=== PATIENT | female | born 1935 | race Two or more races ===

== ENCOUNTER 2022-08-05 19:29 | Inpatient (IN) | payer MEDICARE, OTHER ==
[~2022-08-05] VITALS: Ht 152.4 cm; Wt 56.7 kg
--- NOTE | 2022-08-05 20:30 | NUR ---
NIHSS STROKE ASSESSMENT DONE. PATIENT IS AAOX0. NOT FOLLOWING COMMAND, NON RESPONSIVE TO VERBAL STIMULI BUT WITHDRAWS TO PAINFUL STIMULI. PATIENT HAS HX OF CVA PRIOR. NIHSS SCORE OF 7. DR ELIZONDO MADE AWARE.
--- NOTE | 2022-08-05 21:23 | NUR ---
GRIDDLE COOK ON BEDSIDE.
[2022-08-05] MEDS ORDERED: IV NS 0.9% 500 ML BAG IV ONE (21:30)
[2022-08-05] MEDS ORDERED: DILTIAZEM HCL 50 MG IV IV ONE (21:30)
--- NOTE | 2022-08-05 21:30 | NUR ---
BROUGHT TO CT DEPT
--- NOTE | 2022-08-05 21:45 | NUR ---
IV DAVID G 20 L HAND, INSERTED.
[2022-08-05 21:46] LABS: BASOPHILS % (AUTO) 0.2 % (0.0-2.0); EOSINOPHILS % (AUTO) 0.2 % (0.0-6.0); HEMATOCRIT 31 % (33-45); HEMOGLOBIN 9.4 g/dL (11.5-14.8); LYMPHOCYTES % (AUTO) 5.3 % (20.0-44.0); MEAN CORPUSCULAR HGB CONC 31 g/dl (31.0-36.0); MEAN CORPUSCULAR VOLUME 75 fL (82-100); MONOCYTES # (AUTO) 0.6 K/uL (0.1-1.30); MONOCYTES % (AUTO) 3.4 % (2.0-12.0); NEUTROPHILS # (AUTO) 16.4 K/uL (1.8-8.9); NEUTROPHILS % (AUTO) 90.9 % (43.0-81.0); PLATELET COUNT (AUTO) 387 K/uL (150-450); RED BLOOD CELL COUNT(AUTO) 4.09 MIL/uL (4.0-5.2); WHITE BLOOD COUNT (AUTO) 18.1 K/uL (4.3-11.0)
[2022-08-05 22:04] LABS: ALANINE AMINOTRANSFERASE 46 U/L (12-78); ALBUMIN 1.7 g/dL (3.4-5.0); ALKALINE PHOSPHATASE 172 U/L (46-116); ASPARTATE AMINOTRANSFERASE 51 U/L (15-37); BILIRUBIN,DIRECT 0.2 mg/dL (0.0-0.2); BILIRUBIN,TOTAL 0.3 mg/dL (0.2-1.0); CALCIUM, SERUM 7.9 mg/dL (8.5-10.1); CARBON DIOXIDE 27 mmol/L (21-32); CHLORIDE 92 mmol/L (98-107); CREATININE 1.2 mg/dL (0.6-1.3); GLUCOSE 271 mg/dL (74-106); POTASSIUM 4.4 mmol/L (3.5-5.1); SODIUM SERUM 125 mmol/L (136-145); TOTAL PROTEIN, SERUM 6.7 g/dL (6.4-8.2)
[2022-08-05 22:18] LABS: UREA NITROGEN, BLOOD 87 mg/dL (7-18)
--- NOTE | 2022-08-05 22:18 | NUR ---
RECEIVED REPORT FROM LAB [facility]. PATIENT BUN [id number]. DR CARTAGENA MADE AWARE
--- NOTE | 2022-08-05 22:21 | NUR ---
URINE SPECIMEN SENT TO LAB
--- NOTE | 2022-08-05 22:25 | NUR ---
URINE SAMPLE TAKEN AND SENT TO LAB.
[2022-08-05 22:38] LABS: BILIRUBIN,URINE 1+ (NEGATIVE); COLOR,URINE DARK YELLOW (YELLOW); LEUKOCYTE ESTERASE ,URINE 1+ (NEGATIVE); NITRITE, URINE NEGATIVE (NEGATIVE); PROTEIN,URINE 3+ mg/dl (NEGATIVE); UGLUCOSE NEGATIVE (NEGATIVE)
[2022-08-05 22:42] LABS: PH,URINE >8.5 (5.0-8.0)
[2022-08-05 22:45] LABS: WBC,URINE 21-50 /HPF (0-3)
[2022-08-05 22:46] LABS: BACTERIA,URINE Moderate /HPF (None Seen); SQUAMOUS EPITHELIAL CELL,UR Many /HPF (None Seen); URIC ACID CRYSTALS,URINE Moderate /HPF (None Seen)
[2022-08-05] MEDS ORDERED: CEFTRIAXONE 1GM BAG (ER ONLY) 1 GM/50 ML PIGGYBACK IV ONE (23:00)
[2022-08-05] MEDS ORDERED: CEFTRIAXONE 1GM BAG (ER ONLY) 50 ML IV ONE (23:16)
[2022-08-05] MEDS ORDERED: ONDANSETRON HCL/PF 4 MG/2 ML VIAL IVP PRN (23:30)
[2022-08-05] MEDS ORDERED: hydrALAZINE HCL IV 20 MG VIAL IV PRN (23:30)
[2022-08-05] MEDS ORDERED: MORPHINE SULFATE INJ 2 MG/ML DISP.SYRIN IV PRN (23:30)
[2022-08-05] MEDS ORDERED: LABETALOL 20 MG/4 ML VIAL IV PRN (23:30)
[2022-08-06 00:10] LABS: BAND % (MANUAL) 2 % (0.0-5.0); BASOPHILS % (MANUAL) 0 % (0.0-2.0); EOSINOPHILS % (MANUAL) 0 % (0-4); LYMPHOCYTES % (MANUAL) 6 % (16-48); MONOCYTES % (MANUAL) 5 % (0-11.0); NEUTROPHILS % (MANUAL) 87 (42-76)
[2022-08-06] MEDS ORDERED: DEXTROSE 50%-WATER 50 ML DISP.SYRIN IV PRN (00:30)
[2022-08-06] MEDS ORDERED: CEFEPIME 1 GM in IV D5W 50 ML IV ONE (01:30)
[2022-08-06] MEDS ORDERED: ENOXAPARIN SODIUM 60 MG/0.6 ML DISP.SYRIN SQ ONE (01:30)
[2022-08-06 01:40] VITALS: BP 108/68
--- NOTE | 2022-08-06 01:40 | NUR ---
AREA MECHANIC ADMITTING NOTES PT ARRIVED TO UNIT VIA GURNEY BY ER STAFF. A/O X0-1, RESPONDS TO VERBAL STIMULI BY OPENING EYES AT TIMES BUT UNABLE TO RESPOND VERBALLY. NOTED WITH FLAT AFFECT. VITAL SIGNS: 98.3 F, 108/68 BP, 103 HR, 100% O2, 16 RR. WEIGHT: 121.9 LB. BLOOD SUGAR 173. ON O2 2L VIA NC, STABLE WITH NO S/S OF SOB OR DISTRESS. PLACED ON TELE MONITORING SHOWING AFIB 110'S-140'S. NO SIGNS OF PAIN NOTED AT THIS TIME. IV ACCESS L HAND #20G, INTACT, PATENT, FLUSHING WELL. STARTED ON NS @ 75 ML/HR PER ORDERS. SKIN ASSESSMENT PERFORMED, SOME ISSUES NOTED AND DOCUMENTED IN CHART: B/L HEEL REDNESS, SACRAL REDNESS. BELONGINGS DOCUMENTED AND PLACED IN CHART. PEG TUBE INTACT, PLACEMENT CONFIRMED BY AUSCULTATION, FLUSHING WELL. PT CLEANED AND MADE COMFORTABLE. PLACED IN SEMI-FOWLERS. SAFETY PRECAUTIONS PUT IN PLACE: BED LOCKED AND IN LOWEST POSITION, SIDE RAILS UP X3, CALL LIGHT WITHIN REACH. WILL CONTINUE TO MONITOR AND ASSIST.
--- NOTE | 2022-08-06 01:40 | NUR ---
BROUGHT TO ROOM VIA ACLS PROTOCOL
[2022-08-06] MEDS: IV NS 0.9% 1,000 ML IV SCH ×2 (02:14→12:53)
--- NOTE | 2022-08-06 02:44 | NUR ---
RN NOTE NOTIFIED CHARGE NURSE TO OBTAIN PRESCRIBED CEFEPIME FOR PT. UNABLE TO OBTAIN FROM BOTH NURSING MAINTENANCE INSTRUCTOR AND ER UNIT. WILL NON-ADMIN DUE TO UNAVAILABILITY. CHARGE NURSE AWARE.
[2022-08-06] MEDS: METOPROLOL TARTRATE 25 MG TABLET PO SCH ×5 (02:58→21:03)
[2022-08-06 06:37] LABS: BASOPHILS % (AUTO) 0.2 % (0.0-2.0); EOSINOPHILS % (AUTO) 0.4 % (0.0-6.0); HEMATOCRIT 29 % (33-45); HEMOGLOBIN 8.9 g/dL (11.5-14.8); LYMPHOCYTES # (AUTO) 1.2 K/uL (0.8-4.8); LYMPHOCYTES % (AUTO) 7.3 % (20.0-44.0); MEAN CORPUSCULAR HGB CONC 31 g/dl (31.0-36.0); MEAN CORPUSCULAR VOLUME 75 fL (82-100); MONOCYTES # (AUTO) 0.7 K/uL (0.1-1.30); NEUTROPHILS # (AUTO) 14.6 K/uL (1.8-8.9); NEUTROPHILS % (AUTO) 88.1 % (43.0-81.0); PLATELET COUNT (AUTO) 415 K/uL (150-450); RED BLOOD CELL COUNT(AUTO) 3.85 MIL/uL (4.0-5.2); WHITE BLOOD COUNT (AUTO) 16.6 K/uL (4.3-11.0)
[2022-08-06 07:12] LABS: ALBUMIN 1.6 g/dL (3.4-5.0); BILIRUBIN,TOTAL 0.3 mg/dL (0.2-1.0); CALCIUM, SERUM 7.8 mg/dL (8.5-10.1); MAGNESIUM 3.1 mg/dL (1.8-2.4); PHOSPHORUS 3.9 mg/dL (2.5-4.9); POTASSIUM 3.9 mmol/L (3.5-5.1); TOTAL PROTEIN, SERUM 6.2 g/dL (6.4-8.2)
--- NOTE | 2022-08-06 07:37 | NUR ---
MILL WORKER CLOSING NOTES PT SLEEPING IN BED AT THIS TIME. A/O X0-1, RESPONDS TO VERBAL STIMULI BY OPENING EYES AT TIMES BUT UNABLE TO RESPOND VERBALLY. STABLE ON O2 2L VIA NC, STABLE WITH NO S/S OF SOB OR DISTRESS. ON TELE MONITORING SHOWING AFIB 110'S-150'S. NO SIGNS OF PAIN NOTED AT THIS TIME. IV ACCESS L HAND #20G, INTACT, PATENT, FLUSHING WELL. RUNNING NS @ 75 ML/HR. PEG TUBE INTACT, PLACEMENT CONFIRMED BY AUSCULTATION, FLUSHING WELL. ALL CARE PROVIDED AND MEDS TOLERATED. SAFETY PRECAUTIONS MAINTAINED: BED LOCKED AND IN LOWEST POSITION, SIDE RAILS UP X3, CALL LIGHT WITHIN REACH. WILL ENDORSE CALLI TO DAY SHIFT NURSE.
--- NOTE | 2022-08-06 07:50 | NUR ---
COTTON FARMER OPENING NOTE PT SLEEPING IN BED AT THIS TIME. A/O X0-1, RESPONDS TO VERBAL STIMULI BY OPENING EYES AT TIMES BUT UNABLE TO RESPOND VERBALLY. STABLE ON O2 2L VIA NC, STABLE WITH NO S/S OF SOB OR DISTRESS. ON TELE MONITORING SHOWING AFIB @125BPM. NO SIGNS OF PAIN NOTED AT THIS TIME. IV ACCESS L HAND #20G, INTACT, PATENT, FLUSHING WELL. RUNNING NS @ 75 ML/HR. PEG TUBE INTACT, PLACEMENT CONFIRMED BY AUSCULTATION, FLUSHING WELL. SAFETY PRECAUTIONS MAINTAINED: BED LOCKED AND IN LOWEST POSITION, SIDE RAILS UP X3, CALL LIGHT WITHIN REACH. WILL CONTINUE TO MONITOR AND ASSIST.
[2022-08-06] MEDS: BLOOD SUGAR DIAGNOSTIC 1 EACH STRIP IN SCH ×4 (08:19→21:07)
[2022-08-06] MEDS: INSULIN REGULAR, HUMAN 100 UNIT/ML 3 ML VIAL SQ PRN ×4 (08:21→21:17)
[2022-08-06 09:00] VITALS: BP 127/80
[2022-08-06] MEDS ORDERED: ACET-868 GT (10:10)
[2022-08-06] MEDS ORDERED: ATOR10TA GT (10:10)
[2022-08-06] MEDS ORDERED: LEVO500T90 GT (10:10)
[2022-08-06] MEDS ORDERED: ESOM40CA GT (10:10)
[2022-08-06] MEDS ORDERED: BISA10SU11 RC (10:10)
[2022-08-06] MEDS ORDERED: AMIN30LI2 GT (10:10)
[2022-08-06] MEDS ORDERED: ZINC56.713 TP (10:10)
[2022-08-06] MEDS ORDERED: LEVE500T9 GT (10:10)
[2022-08-06] MEDS ORDERED: NUT.250L18 GT (10:10)
[2022-08-06] MEDS ORDERED: FERR300L GT (10:10)
[2022-08-06] MEDS ORDERED: LATA2.5D15 EACHEYE (10:10)
[2022-08-06] MEDS ORDERED: SENN-261 GT (10:10)
[2022-08-06] MEDS ORDERED: POLY17PO4 GT (10:10)
[2022-08-06] MEDS ORDERED: INSU100V11 SQ (10:10)
[2022-08-06] MEDS ORDERED: APIX2.5T GT (10:10)
[2022-08-06] MEDS ORDERED: BRIM5DRO2 EACHEYE (10:10)
[2022-08-06] MEDS ORDERED: CHLO25TA23 GT (10:10)
[2022-08-06] MEDS ORDERED: METO25TA20 GT (10:10)
--- NOTE | 2022-08-06 11:05 | NUR ---
WOUND CARE CONSULT: PT PRESENTS WITH SACRAL INTACT DEEP TISSUE INJURY WITH SURROUNDING SCARRING, BILATERAL HEEL DEEP TISSUE INJURIES, ALL PRESENT ON ADMISSION. RT SIDED WEAKNESS NOTED. PT IS INCONTINENT. DISCUSSED SKIN PROTECTION RECOMMENDATIONS WITH NURSING STAFF. IN AGREEMENT WITH PLAN OF CARE. Addendum: 08/06/22 at 1106 by EDWARD CASTAÑEDA WNDNU Amended: Links added.
[2022-08-06] MEDS ORDERED: chlorproMAZINE HCL 25 MG TABLET GT PRN (12:00)
[2022-08-06] MEDS ORDERED: BISACODYL SUPP (10 MG) 10 MG/SUPP.RECT SUPP.RECT RC PRN (12:00)
[2022-08-06] MEDS ORDERED: SENNOSIDES 8.6 MG TABLET GT PRN (12:00)
[2022-08-06] MEDS: CEFEPIME 1 GM in IV D5W 50 ML IV SCH (12:25)
[2022-08-06] MEDS: GLUCERNA 1.2 1,000 ML BOTTLE NG PRN (12:27)
[2022-08-06 13:00] VITALS: BP 106/70
--- NOTE | 2022-08-06 16:00 | NUR ---
RN NOTE COLLECTED STOOL SAMPLE AT THIS TIME. CALLED LAB TO PARTS CHASER.
[2022-08-06 17:00] VITALS: BP 106/63
[2022-08-06 17:09] LABS: OCCULT BLOOD STOOL NEGATIVE (NEGATIVE)
--- NOTE | 2022-08-06 18:32 | NUR ---
STEREOTYPE FINISHER CLOSING NOTE PT SLEEPING IN BED AT THIS TIME, EASILY BEING AROUSED. A/O X0-1, RESPONDS TO VERBAL STIMULI BY OPENING EYES AT TIMES BUT UNABLE TO RESPOND VERBALLY. STABLE ON O2 2L VIA NC, STABLE WITH NO S/S OF SOB OR DISTRESS. ON TELE MONITORING SHOWING AFIB @ 109 BPM. NO SIGNS OF PAIN NOTED AT THIS TIME. IV ACCESS L HAND #20G, INTACT, PATENT, FLUSHING WELL. RUNNING NS @ 75 ML/HR. PEG TUBE INTACT, FLUSHING WELL, RUNNING GLUCERNA 1.2 @55ML/HR. PUREWICK IN PLACE, NOTED WITH BRIGHT RED URINE OUTPUT, 200ML URINE OUTPUT DURING THE SHIFT. DR TINOCO AWARE. KEPT PT C/D/I. ALL CARE PROVIDED AND MEDS TOLERATED. SAFETY PRECAUTIONS MAINTAINED: BED LOCKED AND IN LOWEST POSITION, SIDE RAILS UP X3, CALL LIGHT WITHIN REACH. WILL ENDORSE CALLI TO DAY SHIFT NURSE.
--- NOTE | 2022-08-06 19:15 | NUR ---
TELE1 RN NOTES RECEIVED LAYING ON BED,A/O X1,BREATHING NON LABORED,O2 2L/NC IN USED.PER REPORT,PATIENT WAS DNR/DNI WITH POLST,APPARENTLY SPOKE TO THE DAUGHTER WHO WAS AT BEDSIDE AND SHE SAID,SHE CPR FOR HER MOM IN CASE PATIENT STOP BREATHING,BUT NO INTUBATION.WILL TALK TO HER SISTER WHO'S SIGNED THE POLST.PRESENT IVF NS AT 75ML/HR RATE INFUSING WELL ON LEFT HAND SALINE LOCK VIA IV PUMP.ON PUREWICK DRAINS BLOODY URINE OUTPUT.ON GT FEEDING AT 55ML/HR RATE,TOLERATED WELL,WITH 5MG RESIDUAL VOLUME.HOB ELEVATED FOR ASPIRATION PRECAUTION.WILL CONTINUE TO MONITOR STATUS.
[2022-08-06 20:00] VITALS: BP 120/64
[2022-08-06] MEDS: APIXABAN 2.5 MG TABLET GT SCH (21:00)
[2022-08-06] MEDS ORDERED: METOPROLOL TARTRATE 25 MG TABLET GT SCH (21:00)
--- NOTE | 2022-08-06 21:00 | NUR ---
TELE1 RN NOTES ELIQUIS 2MG/GT HELD FOR HEMATURIA
[2022-08-06] MEDS: LEVETIRACETAM SOL (5 ML) 100 MG/ML UDC GT SCH (21:02)
[2022-08-06] MEDS: LATANOPROST EYE DROP 0.005% 2.5 ML BOTTLE EACHEYE SCH (21:03)
[2022-08-06] MEDS: ATORVASTATIN 10 MG TABLET GT SCH (21:07)
--- NOTE | 2022-08-06 21:30 | NUR ---
PARTY PLAN DEALER NOTES ACCU-CHECK BLOOD SUGAR CHECK 181MG/DL.COVERED WITH HUMULIN R 3 UNITS PER SLIDING SCALE.GT FEEDING IN PROGRESS,NO RESIDUAL VOLUME.
[2022-08-06] MEDS ORDERED: BIMATOPROST 2.5 ML DROPS OP SCH (22:00)
[2022-08-07] VITALS: BP 112/58
[2022-08-07] MEDS: IV NS 0.9% 1,000 ML IV SCH (02:21)
[2022-08-07] MEDS ORDERED: ENOXAPARIN SODIUM 60 MG/0.6 ML DISP.SYRIN SQ SCH (03:00)
[2022-08-07 04:00] VITALS: BP 109/69
[2022-08-07 05:50] LABS: BASOPHILS % (AUTO) 0.4 % (0.0-2.0); EOSINOPHILS % (AUTO) 1.1 % (0.0-6.0); HEMATOCRIT 30 % (33-45); HEMOGLOBIN 9.1 g/dL (11.5-14.8); LYMPHOCYTES # (AUTO) 0.9 K/uL (0.8-4.8); LYMPHOCYTES % (AUTO) 8.6 % (20.0-44.0); MEAN CORPUSCULAR HGB CONC 31 g/dl (31.0-36.0); MEAN CORPUSCULAR VOLUME 76 fL (82-100); MONOCYTES # (AUTO) 0.6 K/uL (0.1-1.30); MONOCYTES % (AUTO) 6.1 % (2.0-12.0); NEUTROPHILS # (AUTO) 8.8 K/uL (1.8-8.9); NEUTROPHILS % (AUTO) 83.8 % (43.0-81.0); PLATELET COUNT (AUTO) 410 K/uL (150-450); RED BLOOD CELL COUNT(AUTO) 3.92 MIL/uL (4.0-5.2); WHITE BLOOD COUNT (AUTO) 10.5 K/uL (4.3-11.0)
[2022-08-07 06:04] LABS: CALCIUM, SERUM 8.1 mg/dL (8.5-10.1); CREATININE 0.9 mg/dL (0.6-1.3); MAGNESIUM 3.2 mg/dL (1.8-2.4); POTASSIUM 4.3 mmol/L (3.5-5.1)
--- NOTE | 2022-08-07 06:11 | NUR ---
SHEET METAL WORKER NOTES NO SIGNIFICANT CHANGE IN STATUS.GT FEEDING TOLERATED WELL,NO RESIDUAL VOLUME NOTED. HAD x1 BOWEL MOVEMENT MIXED WITH URINE.PUREWICK OUTPUT 300MLREDDISH TO BROWNSH COLOR.WILL FOLLOW WITH FELICITY, DAUGHTER TODAY ABOUT CODE STATUS.IN NO ACUTE DISTRESS.MORNING CARE RENDERED TOLERATED WELL.REPOSITION,HOB ELEVATED.
--- NOTE | 2022-08-07 07:33 | NUR ---
METAL PATTERNMAKER NOTES PATIENT IN BED ASLEEP. ON NC 2L WITH NO SOB OR S/S OF RESPIRATORY DISTRESS. BREATHING EVEN AND UNLABORED. GT IN PLACE WITH GLUCERNA 1.2 RUNNING @ 55ML/HR. IV ACCESS ON L HAND 20G INFUSING NS @ 75 ML/HR WITH NO SIGNS OF INFILTRATION. WILL CONTINUE TO MONITOR.
[2022-08-07 08:00] VITALS: BP 125/56
[2022-08-07] MEDS: APIXABAN 2.5 MG TABLET GT SCH ×2 (09:00→21:00)
[2022-08-07] MEDS: ZINC OXIDE 56.7 GM TUBE TP SCH (09:00)
[2022-08-07] MEDS: BLOOD SUGAR DIAGNOSTIC 1 EACH STRIP IN SCH ×4 (09:40→22:30)
[2022-08-07] MEDS: PANTOPRAZOLE 40 MG/PACK PACK GT SCH (09:40)
[2022-08-07] MEDS: POLYETHYLENE GLYCOL 3350 17 GM POWD.PACK GT SCH (09:41)
[2022-08-07] MEDS: FERROUS SULFATE UDC 300 MG/5 ML UDC GT SCH ×2 (09:41→09:44)
[2022-08-07] MEDS: LEVETIRACETAM SOL (5 ML) 100 MG/ML UDC GT SCH ×2 (09:41→22:09)
[2022-08-07] MEDS: METOPROLOL TARTRATE 25 MG TABLET PO SCH ×4 (09:43→21:00)
[2022-08-07] MEDS: PROSOURCE / PROSTAT (PYXIS) 30 ML UDC GT SCH (09:44)
--- NOTE | 2022-08-07 10:04 | NUR ---
RACHANA WEBB DUE TO HEMATURIA. Addendum: 08/07/22 at 1005 by JUANITA PATTERSON RN MD CHANCE
[2022-08-07 12:00] VITALS: BP 127/52
--- NOTE | 2022-08-07 12:35 | NUR ---
RN NOTES PATIENTS FAMILY REQUESTED THAT PATIENT BE DISCHARGED HOME INSTEAD OF SNF.
[2022-08-07] MEDS: CEFEPIME 1 GM in IV D5W 50 ML IV SCH (13:17)
[2022-08-07] MEDS: INSULIN REGULAR, HUMAN 100 UNIT/ML 3 ML VIAL SQ PRN ×3 (13:17→22:32)
[2022-08-07 16:00] VITALS: BP 125/56
[2022-08-07] MEDS: IV NS 0.9% 1,000 ML IV PRN (18:06)
--- NOTE | 2022-08-07 19:40 | NUR ---
ROBOTICS TECHNOLOGIST OPENING NOTE PATIENT SLEEPING IN BED WITH FAMILY AT BEDSIDE, PATIENT NON-VERBAL, OPENS EYES. PATIENT STABLE ON 2 LPM OF O2 VIA NASAL CANNULA, NO S/S OF DISTRESS OR SOB NOTED, BREATHING EVEN AND UNLABORED. PATIENT ON TELE MONITOR READING CONTROLLED A. FIB, HR: 80. IV ACCESS ON LEFT HAND #20G INTACT AND INFUSING NS @ 75 ML/HR. PATIENT ON GTF GLUCERNA 1.2 @ 55 ML/HR X 20 HRS. SAFETY MEASURES IN PLACE: CALL LIGHT WITHIN REACH, SIDE RAILS UP X 3, BED LOCKED IN LOWEST POSITION, HOB ELEVATED, BED ALARM ON. WILL CONTINUE TO MONITOR PATIENT
[2022-08-07 20:00] VITALS: BP 132/59
--- NOTE | 2022-08-07 20:05 | NUR ---
MICROBIOLOGICAL LAB TECHNICIAN NOTES PATIENT IN BED ASLEEP WITH FAMILY AT BEDSIDE. ON NC 2L WITH NO SOB OR S/S OF RESPIRATORY DISTRESS. BREATHING EVEN AND UNLABORED. GT IN PLACE WITH GLUCERNA 1.2 RUNNING @ 55ML/HR SINCE 1430. IV ACCESS ON L HAND 20G INFUSING NS @ 75 ML/HR WITH NO SIGNS OF INFILTRATION. FAMILY WILL NOTIFY FELICITY TO SIGN NEW POLST. ALL SAFETY PRECAUTIONS IN PLACE WITH BED IN LOWEST LOCKED POSITION, SIDE RAILS UP X 3, AND CALL LIGHT WITHIN REACH. WILL ENDORSE TO ONCOMING SHIFT FOR CALLI.
--- NOTE | 2022-08-07 20:15 | NUR ---
HEATER FURNACE NOTE PATIENT'S FAMILY STATES THEY WANT TO CHANGE PATIENT'S CODE STATUS, CURRENTLY DNR/DNI HOWEVER FAMILY WANTS CPR BUT NO INTUBATION, TUBE FEEDING OKAY PATIENT IS CURRENTLY ON TUBE FEEDING. PER FAMILY NORA OLSON IS THE DECISION MAKER FOR FAMILY. NEW POLST SIGNED BY NORA OLSON, AWAITING MD SIGNATURE TO CHANGE CODE STATUS
--- NOTE | 2022-08-07 21:00 | NUR ---
CLOCK AND WATCH HANDS PAINTER NOTE CONTACTED DICTATING MACHINE TYPIST TREVOR KURTZ REGARDING ELIQUIS, PER DAYSHIFT RN PATIENT HAS BEEN HAVING HEMATURIA AND ELIQUIS WAS HELD DURING DAYSHIFT, PER DICTATING MACHINE TYPIST TREVOR KURTZ HOLD ELIQUIS. FAMILY ALSO STATED PATIENT HAS BEEN HAVING DIARRHEA FOR 5 DAYS [facility] SN[facility] ALSO ENDORSED EPISODES OF DIARRHEA, PER DICTATING MACHINE TYPIST ORDER C. DIFF TESTING, WILL COLLECT STOOL SAMPLE
[2022-08-07] MEDS: LATANOPROST EYE DROP 0.005% 2.5 ML BOTTLE EACHEYE SCH (22:09)
[2022-08-07] MEDS: ATORVASTATIN 10 MG TABLET GT SCH (22:09)
--- NOTE | 2022-08-07 22:14 | NUR ---
VP OF DIGITAL MARKETING NOTE HELD LOPRESSOR 50 MG D/T LOW BP. BP 103/54, HR: 86, SPO2: 99%. WILL CONTINUE TO MONITOR
[2022-08-07] MEDS: GLUCERNA 1.2 1,000 ML BOTTLE NG PRN (22:30)
--- NOTE | 2022-08-07 23:16 | NUR ---
JEWELRY BEARING MAKER NOTE STOOL SAMPLE COLLECTED FOR C. DIFF TESTING. SAMPLE DROPPED OFF IN LAB
[2022-08-08] VITALS (7 sets, daily range): BP systolic 120–142; BP diastolic 54–76
[2022-08-08 06:02] LABS: BASOPHILS % (AUTO) 0.4 % (0.0-2.0); EOSINOPHILS % (AUTO) 1.7 % (0.0-6.0); HEMATOCRIT 29 % (33-45); HEMOGLOBIN 8.9 g/dL (11.5-14.8); LYMPHOCYTES % (AUTO) 9.3 % (20.0-44.0); MEAN CORPUSCULAR HGB CONC 30 g/dl (31.0-36.0); MEAN CORPUSCULAR VOLUME 77 fL (82-100); MONOCYTES # (AUTO) 0.9 K/uL (0.1-1.30); MONOCYTES % (AUTO) 7.7 % (2.0-12.0); NEUTROPHILS % (AUTO) 80.9 % (43.0-81.0); PLATELET COUNT (AUTO) 346 K/uL (150-450); RED BLOOD CELL COUNT(AUTO) 3.81 MIL/uL (4.0-5.2); WHITE BLOOD COUNT (AUTO) 11.1 K/uL (4.3-11.0)
[2022-08-08 06:18] LABS: CALCIUM, SERUM 7.9 mg/dL (8.5-10.1); CREATININE 0.9 mg/dL (0.6-1.3); POTASSIUM 4.1 mmol/L (3.5-5.1)
--- NOTE | 2022-08-08 06:27 | NUR ---
FREIGHT BROKER AGENT CLOSING NOTE PATIENT SLEEPING IN BED, PATIENT NON-VERBAL. PATIENT STABLE ON 2 LPM OF O2 VIA NASAL CANNULA, NO S/S OF DISTRESS OR SOB NOTED, BREATHING EVEN AND UNLABORED. PATIENT ON TELE MONITOR READING A.FIB, HR: 109. IV ACCESS ON LEFT HAND #20G INTACT AND INFUSING NS @ 75 ML/HR. GTF FEEDING INFUSING GLUCERNA 1.2 @ 55 ML/HR X 20 HRS, NO RESIDUAL NOTED. MEDICATIONS GIVEN ORDERED, PT NEEDS MET THROUGHOUT SHIFT. PATIENT HAD 3 LOOSE BM'S THIS SHIFT, STOOL SAMPLE SENT TO LAB FOR C. DIFF TESTING, RESULTS PENDING. PER FAMILY THEY WOULD LIKE TO CHANGE CODE STATUS, THEY WANT CPR BUT NO INTUBATION, NEW POLST SIGNED BY GIBSON OLSON (DAUGHTER), STILL NEEDS TO BE SIGNED BY MD AND CODE STATUS NEEDS TO BE CHANGED ON 1-800-DOCTORS, WILL ENDORSE TO ELODIA RN. PER FAMILY THEY WANT PATIENT TO BE DISCHARGED HOME NOT TO SNF. SAFETY MEASURES IN PLACE: CALL LIGHT WITHIN REACH, SIDE RAILS UP X 3, BED LOCKED IN LOWEST POSITION, HOB ELEVATED, BED ALARM ON. WILL ENDORSE TO DAYSHIFT RN FOR CONTINUITY OF CARE
--- NOTE | 2022-08-08 07:28 | NUR ---
CHEMICAL HANDLER OPENING NOTE PATIENT SLEEPING IN BED. STABLE ON 2 LPM OF O2 VIA NASAL CANNULA WITH NO S/S OF DISTRESS OR SOB NOTED, BREATHING EVEN AND UNLABORED. IV ACCESS ON LEFT HAND #20G INTACT AND INFUSING NS @ 75 ML/HR. GTF FEEDING INFUSING GLUCERNA 1.2 @ 55 ML/HR X 20 HRS. ALL SAFETY MEASURES IN PLACE: CALL LIGHT WITHIN REACH, SIDE RAILS UP X 3, BED LOCKED IN LOWEST POSITION, HOB ELEVATED, BED ALARM ON. WILL CONTINUE TO MONITOR.
[2022-08-08] MEDS: IV NS 0.9% 1,000 ML IV PRN (07:42)
[2022-08-08] MEDS: POLYETHYLENE GLYCOL 3350 17 GM POWD.PACK GT SCH (08:35)
[2022-08-08] MEDS: PANTOPRAZOLE 40 MG/PACK PACK GT SCH (08:35)
[2022-08-08] MEDS: METOPROLOL TARTRATE 25 MG TABLET PO SCH ×4 (08:35→20:57)
[2022-08-08] MEDS: FERROUS SULFATE UDC 300 MG/5 ML UDC GT SCH (08:36)
[2022-08-08] MEDS: LEVETIRACETAM SOL (5 ML) 100 MG/ML UDC GT SCH ×2 (08:36→20:58)
[2022-08-08] MEDS: APIXABAN 2.5 MG TABLET GT SCH ×2 (08:36→21:04)
[2022-08-08] MEDS: PROSOURCE / PROSTAT (PYXIS) 30 ML UDC GT SCH ×3 (08:38→18:45)
[2022-08-08] MEDS: BLOOD SUGAR DIAGNOSTIC 1 EACH STRIP IN SCH ×4 (08:41→21:57)
[2022-08-08] MEDS: INSULIN REGULAR, HUMAN 100 UNIT/ML 3 ML VIAL SQ PRN ×4 (08:42→22:38)
[2022-08-08] MEDS: ZINC OXIDE 56.7 GM TUBE TP SCH (08:58)
--- NOTE | 2022-08-08 09:20 | NUR ---
CONSULTANT NOTE ELIQUIS ADMINISTERED TO PATIENT AFTER BEING HELD FOR 24 HOURS DUE TO HEMATURIA. NO BLOOD IN URINE NOTED THROUGHOUT NIGHT OR IN AM. ALEJANDRINA GOVEA RN SUPERVISOR SEAMING AWARE.
--- NOTE | 2022-08-08 11:04 | NUR ---
CATARACT LENS GENERATOR NOTE CHANGE IN DNR/DNI CODE STATUS ORDERED. PATIENT IS NOW CPR/DNI REQUESTED BY FAMILY. POLST SIGNED BY GIBSON MELENDEZ.
[2022-08-08] MEDS: CEFEPIME 1 GM in IV D5W 50 ML IV SCH (12:28)
[2022-08-08] MEDS: DIGOXIN INJ 0.5 MG/2 ML AMPUL IV SCH ×2 (12:28→17:30)
--- NOTE | 2022-08-08 19:34 | NUR ---
FUR FARMER CLOSING NOTE PATIENT SLEEPING IN BED WITH FAMILY AT BEDSIDE. PATIENT STABLE ON 2 LPM OF O2 VIA NASAL CANNULA, NO S/S OF DISTRESS OR SOB NOTED. BREATHING EVEN AND UNLABORED. PATIENT ON TELE MONITOR READING A.FIB. IV ACCESS ON LEFT HAND #20G INTACT AND INFUSING NS @ 15 ML/HR. GTF FEEDING INFUSING GLUCERNA 1.2 @ 55 ML/HR X 20 HRS, NO RESIDUAL NOTED. CODE STATUS CHANGED TO CPR/DTI. ALL SAFETY MEASURES IN PLACE: CALL LIGHT WITHIN REACH, SIDE RAILS UP X 3, BED LOCKED IN LOWEST POSITION, HOB ELEVATED, BED ALARM ON. WILL ENDORSE TO ONCOMING RN FOR CONTINUITY OF CARE
--- NOTE | 2022-08-08 20:30 | NUR ---
WEBSPHERE MESSAGE BROKER DEVELOPER OPENING NOTES RECEIVED PATIENT IN BED, A/O X 1 NON-VERBAL BUT OPEN EYES. PATIENT IS ON DNI CODE STATUS FAMILY WANT CPR BUT NO INTUBATION. ON MODERATE HIGH BACK REST POSITION. HOOKED TO NASAL CANNULA AT 2LPM SATURATING AT 98%. WITH IV ACCESS AT LEFT HAND #20G WITH NS1L AT 15ML/HR INFUSING WELL. WITH G-TUBE FEEDING AT GLUCERNA 1.2 AT 55ML/HR NO RESIDUAL NOTED, NO ASPIRATION NOTED PATIENT TOLERATING WELL. NO PAIN OR ANY DISCOMFORT AT THIS TIME. PATIENT IS INCONTINENT WITH DIAPER AND PUREWICK CONNECTED TO SUCTION MACHINE NOTED URINE OUTPUT TEA COLORED. NO ASPIRATION NOTED. KEPT BED ON LOWER LOCKED POSITION KEPT SIDE RAILS UP X 2 ALL THE TIME. KEPT CALL LIGHT WITHIN AT REACH. WILL CONTINUE TO MONITOR FOR CALLI.
[2022-08-08] MEDS: ATORVASTATIN 10 MG TABLET GT SCH (21:06)
[2022-08-08] MEDS: LATANOPROST EYE DROP 0.005% 2.5 ML BOTTLE EACHEYE SCH (21:06)
[2022-08-09 00:01] VITALS: BP 128/51
[2022-08-09] MEDS: DIGOXIN INJ 0.5 MG/2 ML AMPUL IV SCH (00:06)
[2022-08-09 04:00] VITALS: BP 144/73
[2022-08-09] MEDS: GLUCERNA 1.2 1,000 ML BOTTLE NG PRN (04:49)
[2022-08-09] MEDS: INSULIN REGULAR, HUMAN 100 UNIT/ML 3 ML VIAL SQ PRN ×4 (06:05→23:01)
--- NOTE | 2022-08-09 06:35 | NUR ---
ORNAMENTAL METAL ERECTOR CLOSING NOTES PATIENT IS IN BED, A/O X 1 NON-VERBAL BUT OPEN EYES. PATIENT IS ON DNI CODE STATUS FAMILY WANT CPR BUT NO INTUBATION. ON MODERATE HIGH BACK REST POSITION. HOOKED TO NASAL CANNULA AT 2LPM SATURATING AT 98%. WITH IV ACCESS AT LEFT HAND #20G WITH NS1L AT 15ML/HR INFUSING WELL. WITH G-TUBE FEEDING AT GLUCERNA 1.2 AT 55ML/HR NO RESIDUAL NOTED, NO ASPIRATION NOTED PATIENT TOLERATING WELL. NO PAIN OR ANY DISCOMFORT AT THIS TIME. PATIENT IS INCONTINENT WITH DIAPER AND PUREWICK CONNECTED TO SUCTION MACHINE NOTED URINE OUTPUT TEA COLORED. ALL TUBES CHANGE, ALL DUE MEDICATIONS GIVEN, ALL NEEDS ATTENDED. TURNED PATIENT EVERY 2 HOURS.FAMILY WANTS TO ROBIN TO THE CANDY POLISHER REGARDING TAKING PATIENT HOME INSTEAD OF SNF. NO ASPIRATION NOTED. KEPT BED ON LOWER LOCKED POSITION KEPT SIDE RAILS UP X 2 ALL THE TIME. KEPT CALL LIGHT WITHIN AT REACH. WILL ENDORSED TO AM SHIFT FOR CALLI.
[2022-08-09] MEDS: BLOOD SUGAR DIAGNOSTIC 1 EACH STRIP IN SCH ×4 (06:37→23:09)
--- NOTE | 2022-08-09 07:26 | NUR ---
SENIOR MORTGAGE UNDERWRITER OPENING NOTES PATIENT IN BED ASLEEP. RESPONDS TO PHYSICAL STIMULATION. A/O X 0-1. HOB ELEVATED. ON NASAL CANNULA AT 2LPM. IV ACCESS AT LEFT HAND #20G WITH NS AT 15ML/HR INFUSING WELL. WITH G-TUBE FEEDING AT GLUCERNA 1.2 AT 55ML/HR. TOLERATING WELL. PUREWICK CONNECTED TO SUCTION MACHINE. SAFETY PRECAUTIONS IN PLACE WITH BED ON LOWEST LOCKED POSITION, SIDE RAILS UP X 2 AND CALL LIGHT WITHIN REACH. WILL CONTINUE TO MONITOR.
[2022-08-09 08:00] VITALS: BP 133/49
[2022-08-09] MEDS: POLYETHYLENE GLYCOL 3350 17 GM POWD.PACK GT SCH (08:19)
[2022-08-09] MEDS: LEVETIRACETAM SOL (5 ML) 100 MG/ML UDC GT SCH ×2 (08:19→21:55)
[2022-08-09] MEDS: FERROUS SULFATE UDC 300 MG/5 ML UDC GT SCH (08:19)
[2022-08-09] MEDS: PANTOPRAZOLE 40 MG/PACK PACK GT SCH (08:20)
[2022-08-09] MEDS: APIXABAN 2.5 MG TABLET GT SCH ×3 (08:33→22:00)
[2022-08-09] MEDS: METOPROLOL TARTRATE 25 MG TABLET PO SCH ×4 (08:35→21:57)
[2022-08-09] MEDS: ZINC OXIDE 56.7 GM TUBE TP SCH (09:00)
[2022-08-09 09:29] LABS: BASOPHILS % (AUTO) 0.3 % (0.0-2.0); EOSINOPHILS % (AUTO) 1.1 % (0.0-6.0); HEMATOCRIT 29 % (33-45); HEMOGLOBIN 8.3 g/dL (11.5-14.8); LYMPHOCYTES # (AUTO) 1.1 K/uL (0.8-4.8); LYMPHOCYTES % (AUTO) 8.1 % (20.0-44.0); MEAN CORPUSCULAR HGB CONC 29 g/dl (31.0-36.0); MEAN CORPUSCULAR VOLUME 79 fL (82-100); MONOCYTES # (AUTO) 0.8 K/uL (0.1-1.30); MONOCYTES % (AUTO) 5.4 % (2.0-12.0); NEUTROPHILS % (AUTO) 85.1 % (43.0-81.0); PLATELET COUNT (AUTO) 386 K/uL (150-450); RED BLOOD CELL COUNT(AUTO) 3.64 MIL/uL (4.0-5.2); WHITE BLOOD COUNT (AUTO) 14.1 K/uL (4.3-11.0)
[2022-08-09 09:58] LABS: CALCIUM, SERUM 8.2 mg/dL (8.5-10.1); CREATININE 1.3 mg/dL (0.6-1.3); POTASSIUM 4.4 mmol/L (3.5-5.1)
[2022-08-09] MEDS: PROSOURCE / PROSTAT (PYXIS) 30 ML UDC GT SCH ×3 (10:41→16:09)
[2022-08-09 12:00] VITALS: BP 146/55
[2022-08-09] MEDS: DIGOXIN 0.25 MG TABLET PO SCH (12:39)
[2022-08-09] MEDS: CEFEPIME 1 GM in IV D5W 50 ML IV SCH (12:40)
[2022-08-09 16:00] VITALS: BP 142/76
[2022-08-09] MEDS: ACETAMINOPHEN 325 MG TABLET PO PRN (16:07)
--- NOTE | 2022-08-09 17:26 | NUR ---
RN NOTES NOTIFIED SUSAN GALAN REGARDING SKIN ABRASION IN FOLDS ABOVE PUBIS. TOLD TO PUT ZINC OXIDE ON IT.
--- NOTE | 2022-08-09 18:30 | NUR ---
RN NOTES BLOOD IN STOOL. NOTIFIED ALEJANDRINA GOVEA NP RN. ORDERED OCCULT BLOOD STOOL EXAM. WILL HOLD ELIQUIS AND ENDORSE TO ONCOMING SHIFT.
--- NOTE | 2022-08-09 19:40 | NUR ---
INVOICING MACHINE OPERATOR OPENING NOTE PATIENT IN BED ASLEEP. RESPONDS TO PHYSICAL STIMULATION. A/O X 0-1. ON O2 VIA NASAL CANNULA AT 2LPM. IV ACCESS AT LEFT HAND #20G WITH NS RUNNING AT 15ML/HR, INFUSING WELL. G-TUBE FEEDING WITH GLUCERNA 1.2 AT 55ML/HR, PT TOLERATING WELL, NO RESIDUAL. PUREWICK CONNECTED TO SUCTION MACHINE. SAFETY PRECAUTIONS IN PLACE: BED IN LOWEST LOCKED POSITION, SIDE RAILS UP X 2, HOB ELEVATED, AND CALL LIGHT WITHIN REACH. WILL CONTINUE TO MONITOR.
--- NOTE | 2022-08-09 19:53 | NUR ---
PREPARED FOODS SERVICE TEAM MEMBER CLOSING NOTES PATIENT IN BED ASLEEP. A/O X 0-1. RESPONDS TO PHYSICAL STIMULATION. HOB ELEVATED. ON NASAL CANNULA AT 2LPM. ON TELE MONITOR. IV ACCESS AT LEFT HAND #20G WITH NS AT 15ML/HR INFUSING WELL. G-TUBE INTACT WITH GLUCERNA 1.2 RUNNING AT 55ML/HR. TOLERATING WELL. PUREWICK CONNECTED TO SUCTION MACHINE. ALL DUE MEDS GIVEN. ENDORSED HOLD ON ELIQUIS TO ONCOMING RN. ALL SAFETY PRECAUTIONS IN PLACE WITH BED ON LOWEST LOCKED POSITION, SIDE RAILS UP X 2 AND CALL LIGHT WITHIN REACH. WILL ENDORSE TO ONCOMING SHIFT RN FOR CALLI.
[2022-08-09 20:00] VITALS: BP 107/43
--- NOTE | 2022-08-09 21:00 | NUR ---
RADIOLOGIST NOTE ELIQUIS HELD PER MD GOVEA REQUEST.
[2022-08-09] MEDS: ATORVASTATIN 10 MG TABLET GT SCH (21:55)
[2022-08-09] MEDS: LATANOPROST EYE DROP 0.005% 2.5 ML BOTTLE EACHEYE SCH (21:58)
[2022-08-10] VITALS: BP 147/57
[2022-08-10 04:00] VITALS: BP 152/60
--- NOTE | 2022-08-10 06:30 | NUR ---
WAGON DRIVER CLOSING NOTE LEFT PATIENT IN BED ASLEEP. RESPONDS TO PHYSICAL STIMULATION. A/O X 0-1. ON O2 VIA NASAL CANNULA AT 2LPM. IV ACCESS AT LEFT HAND #20G WITH NS RUNNING AT 15ML/HR, INFUSING WELL. G-TUBE FEEDING WITH GLUCERNA 1.2 AT 55ML/HR, PT TOLERATING WELL, NO RESIDUAL. PUREWICK CONNECTED TO SUCTION MACHINE, 350 ML OF URINE DRAINED. SAFETY PRECAUTIONS IN PLACE: BED IN LOWEST LOCKED POSITION, SIDE RAILS UP X 2, HOB ELEVATED, AND CALL LIGHT WITHIN REACH. WILL ENDORSE PT TO AM SHIFT NURSE FOR CALLI
[2022-08-10 07:23] LABS: CALCIUM, SERUM 8.6 mg/dL (8.5-10.1); CARBON DIOXIDE 20 mmol/L (21-32); CHLORIDE 109 mmol/L (98-107); CREATININE 1.4 mg/dL (0.6-1.3); GLUCOSE 227 mg/dL (74-106); POTASSIUM 4.8 mmol/L (3.5-5.1); SODIUM SERUM 138 mmol/L (136-145)
--- NOTE | 2022-08-10 07:25 | NUR ---
COMPUTER SCIENCE PROFESSOR OPENING NOTE RECEIVED PATIENT IN BED ASLEEP. RESPONDS TO PHYSICAL STIMULATION. A/O X 0-1, NONVERBAL. ON O2 VIA NASAL CANNULA AT 2LPM. IV ACCESS IN LEFT HAND #20G WITH ONGOING NS AT 15ML/HR, INFUSING WELL. G-TUBE FEEDING WITH GLUCERNA 1.2 AT 55ML/HR, PT TOLERATING WELL, NO RESIDUAL. ON PUREWICK CONNECTED TO SUCTION MACHINE. SAFETY PRECAUTIONS IN PLACE: BED IN LOWEST LOCKED POSITION, SIDE RAILS UP X 2, HOB ELEVATED, AND CALL LIGHT WITHIN REACH. WILL CONTINUE TO MONITOR.
[2022-08-10 07:32] LABS: UREA NITROGEN, BLOOD 84 mg/dL (7-18)
[2022-08-10 07:38] LABS: BASOPHILS % (AUTO) 0.3 % (0.0-2.0); EOSINOPHILS % (AUTO) 1.3 % (0.0-6.0); HEMATOCRIT 31 % (33-45); HEMOGLOBIN 9.2 g/dL (11.5-14.8); LYMPHOCYTES # (AUTO) 1.2 K/uL (0.8-4.8); MEAN CORPUSCULAR HGB CONC 30 g/dl (31.0-36.0); MEAN CORPUSCULAR VOLUME 78 fL (82-100); MONOCYTES # (AUTO) 0.7 K/uL (0.1-1.30); MONOCYTES % (AUTO) 4.3 % (2.0-12.0); NEUTROPHILS # (AUTO) 13.2 K/uL (1.8-8.9); NEUTROPHILS % (AUTO) 86.1 % (43.0-81.0); PLATELET COUNT (AUTO) 353 K/uL (150-450); RED BLOOD CELL COUNT(AUTO) 4.02 MIL/uL (4.0-5.2); WHITE BLOOD COUNT (AUTO) 15.3 K/uL (4.3-11.0)
[2022-08-10] MEDS: BLOOD SUGAR DIAGNOSTIC 1 EACH STRIP IN SCH ×4 (08:10→21:51)
[2022-08-10] MEDS: PANTOPRAZOLE 40 MG/PACK PACK GT SCH (09:24)
[2022-08-10] MEDS: LEVETIRACETAM SOL (5 ML) 100 MG/ML UDC GT SCH ×2 (09:24→21:05)
[2022-08-10] MEDS: POLYETHYLENE GLYCOL 3350 17 GM POWD.PACK GT SCH (09:24)
[2022-08-10] MEDS: PROSOURCE / PROSTAT (PYXIS) 30 ML UDC GT SCH ×3 (09:24→17:35)
[2022-08-10] MEDS: FERROUS SULFATE UDC 300 MG/5 ML UDC GT SCH (09:24)
[2022-08-10] MEDS: METOPROLOL TARTRATE 25 MG TABLET PO SCH ×4 (09:25→21:05)
[2022-08-10] MEDS: APIXABAN 2.5 MG TABLET GT SCH ×2 (09:29→21:06)
[2022-08-10] MEDS: INSULIN REGULAR, HUMAN 100 UNIT/ML 3 ML VIAL SQ PRN ×4 (09:31→21:53)
[2022-08-10] MEDS: ZINC OXIDE 56.7 GM TUBE TP SCH (09:37)
[2022-08-10 10:43] LABS: OCCULT BLOOD STOOL POSITIVE (NEGATIVE)
[2022-08-10 12:21] VITALS: BP 154/61
[2022-08-10] MEDS: DIGOXIN 0.25 MG TABLET PO SCH ×2 (13:00→13:31)
[2022-08-10] MEDS: CEFEPIME 1 GM in IV D5W 50 ML IV SCH (13:23)
[2022-08-10 18:34] VITALS: BP 145/65
--- NOTE | 2022-08-10 19:46 | NUR ---
MS RN OPENING NOTE RECEIVED PT RESTING IN BED, RESPOONSIVE TO TACTILE STIMULI. FAMILY AT BEDSIDE. A/O X1 AND NONVERBAL. ON O2 @ 2LPM VIA NC, TOLERATING WELL. NO SOB OR S/S OF RESPIRATORY DISTRESS. BREATHING EVEN AND UNLABORED. IV ACCESS L HAND 20G, INTACT AND PATENT, RUNNING NS @ 15 ML/HR. WITH GTUBE RUNNING GLUCERNA @ 55 ML/HR, TOLERATING WELL. SAFETY PRECAUTIONS IN PLACE. BED IN LOWEST LOCKED POSITION, HOB ELEVATED, SIDE RAILS UP X3, AND CALL LIGHT AND TABLE WITHIN REACH. ALL NEEDS MET AT THIS TIME.
--- NOTE | 2022-08-10 19:48 | NUR ---
RN CLOSING NOTE PATIENT RESTING IN BED ASLEEP. RESPONDS TO PHYSICAL STIMULATION. A/O X 0-1, NONVERBAL. ON O2 VIA NASAL CANNULA AT 2LPM. IV ACCESS IN LEFT HAND #20G WITH ONGOING NS AT 15ML/HR, INFUSING WELL. G-TUBE FEEDING WITH GLUCERNA 1.2 AT 55ML/HR, PT TOLERATING WELL, NO RESIDUAL. NEEDS ATTENDED. SAFETY PRECAUTIONS IN PLACE: BED IN LOWEST LOCKED POSITION, SIDE RAILS UP X 2, HOB ELEVATED, AND CALL LIGHT WITHIN REACH. ENDORSE CALLI TO SUPERVISOR AIRCRAFT CLEANING.
[2022-08-10 20:00] VITALS: BP 145/67
[2022-08-10] MEDS: LATANOPROST EYE DROP 0.005% 2.5 ML BOTTLE EACHEYE SCH (21:04)
[2022-08-10] MEDS: ATORVASTATIN 10 MG TABLET GT SCH (21:05)
[2022-08-11] VITALS: BP 143/62
[2022-08-11 04:00] VITALS: BP 142/67
[2022-08-11] MEDS: IV NS 0.9% 1,000 ML IV PRN ×2 (04:32→22:03)
[2022-08-11 06:04] LABS: BASOPHILS # (AUTO) 0.1 K/uL (0.0-0.2); BASOPHILS % (AUTO) 0.6 % (0.0-2.0); HEMATOCRIT 28 % (33-45); HEMOGLOBIN 8.3 g/dL (11.5-14.8); LYMPHOCYTES # (AUTO) 1.2 K/uL (0.8-4.8); LYMPHOCYTES % (AUTO) 7.9 % (20.0-44.0); MEAN CORPUSCULAR HGB CONC 30 g/dl (31.0-36.0); MEAN CORPUSCULAR VOLUME 77 fL (82-100); MONOCYTES # (AUTO) 0.6 K/uL (0.1-1.30); MONOCYTES % (AUTO) 3.8 % (2.0-12.0); NEUTROPHILS # (AUTO) 12.8 K/uL (1.8-8.9); NEUTROPHILS % (AUTO) 86.7 % (43.0-81.0); PLATELET COUNT (AUTO) 330 K/uL (150-450); RED BLOOD CELL COUNT(AUTO) 3.64 MIL/uL (4.0-5.2); WHITE BLOOD COUNT (AUTO) 14.8 K/uL (4.3-11.0)
--- NOTE | 2022-08-11 06:34 | NUR ---
MS RN CLOSING NOTE PT RESTING IN BED, RESPONSIVE TO TACTILE STIMULI. FAMILY AT BEDSIDE. A/O X1 AND NONVERBAL. ON O2 @ 2LPM VIA NC, TOLERATING WELL. NO SOB OR S/S OF RESPIRATORY DISTRESS. BREATHING EVEN AND UNLABORED. IV ACCESS L HAND 20G, INTACT AND PATENT, RUNNING NS @ 15 ML/HR. WITH GTUBE RUNNING GLUCERNA @ 55 ML/HR, TOLERATING WELL, NO RESIDUAL. ALL DUE MEDS GIVEN ORDERED. NO S/S OF BLEEDING NOTED DURING SHIFT. SAFETY PRECAUTIONS IN PLACE AT ALL TIMES. BED IN LOWEST LOCKED POSITION, HOB ELEVATED, SIDE RAILS UP X3, AND CALL LIGHT AND TABLE WITHIN REACH. ALL NEEDS MET AT THIS TIME AND WILL ENDORSE TO ONCOMING NURSE FOR CALLI.
[2022-08-11 06:46] LABS: CALCIUM, SERUM 8.6 mg/dL (8.5-10.1); CARBON DIOXIDE 21 mmol/L (21-32); CHLORIDE 113 mmol/L (98-107); CREATININE 1.5 mg/dL (0.6-1.3); GLUCOSE 253 mg/dL (74-106); MAGNESIUM 2.6 mg/dL (1.8-2.4); PHOSPHORUS 4.4 mg/dL (2.5-4.9); POTASSIUM 4.9 mmol/L (3.5-5.1); SODIUM SERUM 143 mmol/L (136-145)
[2022-08-11 07:02] LABS: UREA NITROGEN, BLOOD 88 mg/dL (7-18)
[2022-08-11] MEDS: BLOOD SUGAR DIAGNOSTIC 1 EACH STRIP IN SCH ×4 (07:50→22:01)
[2022-08-11] MEDS: INSULIN REGULAR, HUMAN 100 UNIT/ML 3 ML VIAL SQ PRN ×4 (07:54→22:01)
[2022-08-11 08:00] VITALS: BP 134/90
[2022-08-11] MEDS: APIXABAN 2.5 MG TABLET GT SCH ×2 (09:00→21:00)
[2022-08-11] MEDS: PROSOURCE / PROSTAT (PYXIS) 30 ML UDC GT SCH ×3 (09:29→17:20)
[2022-08-11] MEDS: LEVETIRACETAM SOL (5 ML) 100 MG/ML UDC GT SCH ×2 (09:29→21:14)
[2022-08-11] MEDS: POLYETHYLENE GLYCOL 3350 17 GM POWD.PACK GT SCH (09:29)
[2022-08-11] MEDS: ZINC OXIDE 56.7 GM TUBE TP SCH (09:29)
[2022-08-11] MEDS: METOPROLOL TARTRATE 25 MG TABLET PO SCH ×4 (09:30→21:15)
[2022-08-11] MEDS: FERROUS SULFATE UDC 300 MG/5 ML UDC GT SCH (09:31)
[2022-08-11] MEDS: PANTOPRAZOLE 40 MG/PACK PACK GT SCH (09:31)
--- NOTE | 2022-08-11 11:26 | NUR ---
CHANGE OVER OPENING NOTE RECEIVED PATIENT IN BED ASLEEP IN BED, RESPONDS TO PHYSICAL STIMULATION BUT NON VERBAL, A/O X 0-1, ON O2 VIA NASAL CANNULA AT 2LPM. IV ACCESS IN LEFT HAND #20G FLUSHED WELL. G-TUBE FEEDING WITH GLUCERNA 1.2 AT 55ML/HR, PT TOLERATING WELL, NO RESIDUAL. SAFETY PRECAUTIONS IN PLACE: BED IN LOWEST LOCKED POSITION, SIDE RAILS UP X 2, HOB ELEVATED, CALL LIGHT WITHIN REACH. WILL CONTINUE TO MONITOR.
[2022-08-11 12:00] VITALS: BP 144/72
--- NOTE | 2022-08-11 12:10 | NUR ---
STAT URINE CULTURE WITH STRAIGHT CATH ORDER IS DONE FOR PATIENT AND LAB IS INFORMED
[2022-08-11] MEDS: CEFEPIME 1 GM in IV D5W 50 ML IV SCH (12:19)
[2022-08-11] MEDS: DIGOXIN 0.25 MG TABLET PO SCH (12:20)
[2022-08-11 16:00] VITALS: BP 108/65
--- NOTE | 2022-08-11 19:00 | NUR ---
RN CLOSING NOTES PT RESTING IN BED, A/O X1 AND NONVERBAL. ON O2 @ 2 L VIA NC, TOLERATING WELL. NO SOB OR S/S OF RESPIRATORY DISTRESS. BREATHING EVEN AND UNLABORED. IV ACCESS L HAND 20G, INTACT AND PATENT, RUNNING NS @ 15 ML/HR. WITH GTUBE RUNNING GLUCERNA @ 55 ML/HR, TOLERATING WELL, NO RESIDUAL. ALL DUE MEDS GIVEN ORDERED. NO S/S OF BLEEDING NOTED DURING SHIFT. SAFETY PRECAUTIONS IN PLACE AT ALL TIMES. BED IN LOWEST LOCKED POSITION, HOB ELEVATED, SIDE RAILS UP X3, AND CALL LIGHT AND TABLE WITHIN REACH. ALL NEEDS MET AT THIS TIME AND WILL ENDORSE TO PM NURSE FOR CALLI.
--- NOTE | 2022-08-11 19:30 | NUR ---
RN NOTE RECEIVED PT IN BED, ASLEEP AT THIS TIME, EASILY AROUSABLE. PT SEEMS TO BE COMFORTABLE, NO FACIAL GRIMACING NOTED. ON 2L O2 VIA NC, WEL ASHLEY. NO ACUTE RESP DISTRESS NOTED, RESPIRATIONS EVEN AND UNLABORED. IVF NS INFUSING IN L HAND #20G.GTF IN PLACED, PATENT CURRENTLY RUNNING GLUCERNA AT 55ML/HR, WELL ASHLEY. HOB ELEVATED. SAFETY PRE CAUTIONS OBSERVED AT ALL TIMES. FAMILY AT BEDSIDE. WILL CONT POC.
[2022-08-11 20:00] VITALS: BP 127/73
[2022-08-11] MEDS: ATORVASTATIN 10 MG TABLET GT SCH (21:14)
[2022-08-11] MEDS: LATANOPROST EYE DROP 0.005% 2.5 ML BOTTLE EACHEYE SCH (21:14)
[2022-08-12 04:00] VITALS: BP 129/65
[2022-08-12] MEDS: IV NS 0.9% 1,000 ML IV PRN ×2 (05:54→18:38)
[2022-08-12 06:01] LABS: BASOPHILS # (AUTO) 0.1 K/uL (0.0-0.2); BASOPHILS % (AUTO) 0.3 % (0.0-2.0); EOSINOPHILS % (AUTO) 0.7 % (0.0-6.0); HEMATOCRIT 30 % (33-45); HEMOGLOBIN 8.8 g/dL (11.5-14.8); LYMPHOCYTES # (AUTO) 1.5 K/uL (0.8-4.8); LYMPHOCYTES % (AUTO) 9.3 % (20.0-44.0); MEAN CORPUSCULAR HGB CONC 29 g/dl (31.0-36.0); MEAN CORPUSCULAR VOLUME 79 fL (82-100); MONOCYTES # (AUTO) 0.7 K/uL (0.1-1.30); MONOCYTES % (AUTO) 4.6 % (2.0-12.0); NEUTROPHILS # (AUTO) 13.7 K/uL (1.8-8.9); NEUTROPHILS % (AUTO) 85.1 % (43.0-81.0); PLATELET COUNT (AUTO) 307 K/uL (150-450); RED BLOOD CELL COUNT(AUTO) 3.79 MIL/uL (4.0-5.2); WHITE BLOOD COUNT (AUTO) 16.1 K/uL (4.3-11.0)
--- NOTE | 2022-08-12 06:36 | NUR ---
RN NOTE PT REMAINS IN STABLE CONDITION. NO SIGNIFICANT CHANGES NOTED. STILL ON 2L O2 VIA NC, WELL ASHLEY. O2 SAT-98%. AFEBRILE. NS AT 75ML/HR INFUSING ON L HAND PIV. GTF WEL ASHLEY, GLUCERNA AT 55ML/HR. ALL NEEDS ANTICIPATED. KEPT PT CLEAN AND DRY AT ALL TIMES. TURN/REPOS Q2H/PRN. WILL ENDORSE TO AM SHIFT FOR CALLI.
[2022-08-12 06:37] LABS: CALCIUM, SERUM 8.9 mg/dL (8.5-10.1); CARBON DIOXIDE 18 mmol/L (21-32); CHLORIDE 116 mmol/L (98-107); CREATININE 1.4 mg/dL (0.6-1.3); GLUCOSE 261 mg/dL (74-106); MAGNESIUM 2.7 mg/dL (1.8-2.4); PHOSPHORUS 3.8 mg/dL (2.5-4.9); SODIUM SERUM 144 mmol/L (136-145)
[2022-08-12 06:39] LABS: UREA NITROGEN, BLOOD 98 mg/dL (7-18)
[2022-08-12] MEDS: BLOOD SUGAR DIAGNOSTIC 1 EACH STRIP IN SCH ×4 (08:25→22:37)
[2022-08-12] MEDS: INSULIN REGULAR, HUMAN 100 UNIT/ML 3 ML VIAL SQ PRN ×4 (08:32→22:38)
[2022-08-12] MEDS: METOPROLOL TARTRATE 25 MG TABLET PO SCH ×4 (08:41→20:12)
[2022-08-12] MEDS: LEVETIRACETAM SOL (5 ML) 100 MG/ML UDC GT SCH ×2 (08:41→20:11)
[2022-08-12] MEDS: PANTOPRAZOLE 40 MG/PACK PACK GT SCH (08:41)
[2022-08-12] MEDS: FERROUS SULFATE UDC 300 MG/5 ML UDC GT SCH (08:41)
[2022-08-12] MEDS: PROSOURCE / PROSTAT (PYXIS) 30 ML UDC GT SCH ×3 (08:42→16:31)
[2022-08-12] MEDS: POLYETHYLENE GLYCOL 3350 17 GM POWD.PACK GT SCH (08:42)
[2022-08-12] MEDS: ZINC OXIDE 56.7 GM TUBE TP SCH (08:43)
[2022-08-12] MEDS: APIXABAN 2.5 MG TABLET GT SCH ×2 (08:44→20:12)
--- NOTE | 2022-08-12 09:04 | NUR ---
MRALAX HELD PATIENT HAS DIARRHEA
[2022-08-12] MEDS: CEFEPIME 1 GM in IV D5W 50 ML IV SCH (12:10)
[2022-08-12] MEDS: DIGOXIN 0.25 MG TABLET PO SCH (13:03)
[2022-08-12 16:00] VITALS: BP 140/73
--- NOTE | 2022-08-12 19:02 | NUR ---
N CLOSING NOTES PT RESTING IN BED, A/O X1 AND NONVERBAL. ON O2 @ 2 L VIA NC, TOLERATING WELL. NO SOB OR S/S OF RESPIRATORY DISTRESS. BREATHING EVEN AND UNLABORED. IV ACCESS L HAND 20G, INTACT AND PATENT, RUNNING NS @125 ML/HR. WITH GTUBE RUNNING GLUCERNA @ 55 ML/HR, TOLERATING WELL, NO RESIDUAL. ALL DUE MEDS GIVEN ORDERED. NO S/S OF BLEEDING NOTED DURING SHIFT. SAFETY PRECAUTIONS IN PLACE AT ALL TIMES. BED IN LOWEST LOCKED POSITION, HOB ELEVATED, SIDE RAILS UP X2, AND CALL LIGHT AND TABLE WITHIN REACH. ALL NEEDS MET AT THIS TIME AND WILL ENDORSE TO PM NURSE FOR CALLI.
--- NOTE | 2022-08-12 19:30 | NUR ---
MS RN OPENING NOTE RECEIVED PATIENT FROM AM NURSE; PATIENT RESTING IN BED, A/O X 1, NON-VERBAL; STABLE ON O2 LPM VIA NASAL CANNULA, TOLERATING WELL AND NO S/S OF DISTRESS NOTED, BREATHING EVENLY AND UNLABORED; WITH IV ACCESS ON LEFT HAND G20 RUNNING WITH NS AT 125 ML/HR; WITH G TUBE RUNNING WITH GLUCERNA AT 55 ML/HR, TOLERATING WELL; SAFETY PRECAUTIONS IN PLACE AT ALL TIMES. BED IN LOWEST LOCKED POSITION, HOB ELEVATED, SIDE RAILS UP X2, AND CALL LIGHT AND TABLE WITHIN REACH; WILL CONTINUE TO MONITOR THROUGHOUT SHIFT
[2022-08-12 20:00] VITALS: BP 123/61
[2022-08-12] MEDS: LATANOPROST EYE DROP 0.005% 2.5 ML BOTTLE EACHEYE SCH (22:15)
[2022-08-12] MEDS: ATORVASTATIN 10 MG TABLET GT SCH (22:15)
[2022-08-13] MEDS: IV NS 0.9% 1,000 ML IV PRN ×2 (03:09→11:41)
[2022-08-13 04:00] VITALS: BP 120/65
[2022-08-13] MEDS: GLUCERNA 1.2 1,000 ML BOTTLE NG PRN ×2 (05:34→17:30)
[2022-08-13] MEDS: BLOOD SUGAR DIAGNOSTIC 1 EACH STRIP IN SCH ×4 (06:32→21:49)
[2022-08-13] MEDS: INSULIN REGULAR, HUMAN 100 UNIT/ML 3 ML VIAL SQ PRN ×4 (06:34→21:54)
[2022-08-13 06:36] LABS: BILIRUBIN,URINE NEGATIVE (NEGATIVE); COLOR,URINE ORANGE (YELLOW); LEUKOCYTE ESTERASE ,URINE 1+ (NEGATIVE); NITRITE, URINE NEGATIVE (NEGATIVE); PROTEIN,URINE 2+ mg/dl (NEGATIVE); UGLUCOSE NEGATIVE (NEGATIVE); UROBILINOGEN,URINE 0.2 EU/dL (0.2)
[2022-08-13 06:42] LABS: PH,URINE >9.0 (5.0-8.0)
[2022-08-13 06:48] LABS: BACTERIA,URINE Rare /HPF (None Seen); RBC,URINE 51-80 /HPF (0-2); SQUAMOUS EPITHELIAL CELL,UR Few /HPF (None Seen); TRIPLE PHOSPHATE CRYSTAL,UR Moderate /HPF (None Seen)
[2022-08-13 07:09] LABS: BASOPHILS % (AUTO) 0.2 % (0.0-2.0); HEMATOCRIT 28 % (33-45); HEMOGLOBIN 8.2 g/dL (11.5-14.8); LYMPHOCYTES # (AUTO) 1.4 K/uL (0.8-4.8); LYMPHOCYTES % (AUTO) 9.6 % (20.0-44.0); MEAN CORPUSCULAR HGB CONC 29 g/dl (31.0-36.0); MEAN CORPUSCULAR VOLUME 79 fL (82-100); MONOCYTES # (AUTO) 0.6 K/uL (0.1-1.30); MONOCYTES % (AUTO) 3.8 % (2.0-12.0); NEUTROPHILS # (AUTO) 12.6 K/uL (1.8-8.9); NEUTROPHILS % (AUTO) 85.4 % (43.0-81.0); PLATELET COUNT (AUTO) 255 K/uL (150-450); RED BLOOD CELL COUNT(AUTO) 3.53 MIL/uL (4.0-5.2); WHITE BLOOD COUNT (AUTO) 14.7 K/uL (4.3-11.0)
--- NOTE | 2022-08-13 07:15 | NUR ---
MS RN CLOSING NOTE PATIENT RESTING IN BED, A/O X 1, NON-VERBAL; STABLE ON O2 LPM VIA NASAL CANNULA, TOLERATING WELL AND NO S/S OF DISTRESS NOTED, BREATHING EVENLY AND UNLABORED; WITH IV ACCESS ON LEFT HAND G20 RUNNING WITH NS AT 125 ML/HR; WITH G TUBE RUNNING WITH GLUCERNA AT 55 ML/HR, TOLERATING WELL; SAFETY PRECAUTIONS IN PLACE AT ALL TIMES. BED IN LOWEST LOCKED POSITION, HOB ELEVATED, SIDE RAILS UP X2, AND CALL LIGHT AND TABLE WITHIN REACH; WILL CONTINUE TO MONITOR
[2022-08-13 07:21] LABS: CALCIUM, SERUM 8.4 mg/dL (8.5-10.1); CARBON DIOXIDE 17 mmol/L (21-32); CHLORIDE 121 mmol/L (98-107); CREATININE 1.3 mg/dL (0.6-1.3); GLUCOSE 236 mg/dL (74-106); MAGNESIUM 2.6 mg/dL (1.8-2.4); POTASSIUM 4.9 mmol/L (3.5-5.1); SODIUM SERUM 148 mmol/L (136-145)
--- NOTE | 2022-08-13 07:27 | NUR ---
MS RN CLOSING NOTE PATIENT RESTING IN BED, A/O X 1, NON-VERBAL; STABLE ON O2 LPM VIA NASAL CANNULA, TOLERATING WELL AND NO S/S OF DISTRESS NOTED, BREATHING EVENLY AND UNLABORED; WITH IV ACCESS ON LEFT HAND G20 RUNNING WITH NS AT 125 ML/HR; WITH G TUBE RUNNING WITH GLUCERNA AT 55 ML/HR, TOLERATING WELL; ADMINISTERED MEDICATIONS PRESCRIBED; PATIENT'S NEEDS ATTENDED; MONITORED PATIENT ACCORDINGLY; SAFETY PRECAUTIONS IN PLACE AT ALL TIMES. BED IN LOWEST LOCKED POSITION, HOB ELEVATED, SIDE RAILS UP X2, AND CALL LIGHT AND TABLE WITHIN REACH; WILL ENDORSE TO AM NURSE FOR CALLI.
[2022-08-13 07:35] LABS: UREA NITROGEN, BLOOD 93 mg/dL (7-18)
[2022-08-13] MEDS: POLYETHYLENE GLYCOL 3350 17 GM POWD.PACK GT SCH (08:14)
[2022-08-13] MEDS: PROSOURCE / PROSTAT (PYXIS) 30 ML UDC GT SCH ×3 (08:14→16:31)
[2022-08-13] MEDS: LEVETIRACETAM SOL (5 ML) 100 MG/ML UDC GT SCH ×2 (08:14→21:32)
[2022-08-13] MEDS: FERROUS SULFATE UDC 300 MG/5 ML UDC GT SCH (08:14)
[2022-08-13] MEDS: PANTOPRAZOLE 40 MG/PACK PACK GT SCH (08:14)
[2022-08-13] MEDS: METOPROLOL TARTRATE 25 MG TABLET PO SCH ×4 (08:14→21:36)
[2022-08-13] MEDS: APIXABAN 2.5 MG TABLET GT SCH ×2 (08:15→21:34)
[2022-08-13] MEDS: ZINC OXIDE 56.7 GM TUBE TP SCH (08:23)
[2022-08-13 12:00] VITALS: BP 161/67
[2022-08-13] MEDS: DIGOXIN 0.25 MG TABLET PO SCH (12:09)
[2022-08-13] MEDS: CEFEPIME 1 GM in IV D5W 50 ML IV SCH (12:10)
[2022-08-13] MEDS ORDERED: Prosource GT (13:04)
[2022-08-13] MEDS ORDERED: Digoxin PO (13:04)
[2022-08-13] MEDS ORDERED: METO25TA20 PO (13:04)
[2022-08-13] MEDS ORDERED: NUT.237L45 NG (13:04)
--- NOTE | 2022-08-13 16:51 | NUR ---
PATIENT TACHYPNEIC RR 27 SAT 98 % ON N/C.RT REFUSED TO TAKE PT. AND PENITENTIARY REFUSED TO TAKE PT.DR. SLAUGHTER NOTIFIED AND ORDERED STAT CXR AND DISCHARGE WAS HELD.
--- NOTE | 2022-08-13 18:36 | NUR ---
MS RN CLOSING NOTE PATIENT RESTING IN BED, NON-VERBAL; STABLE ON O2 LPM VIA NASAL CANNULA, O2 SAT 98 , BUT DEVELOPED LABORED BREATHING , DR SLAUGHTER NOTIFIED WITH REQUEST TO START PATIENT ON TELE MONITOR WITH IV ACCESS ON RAC G20 RUNNING 10 ML/HR WITH TKO, WITH G TUBE RUNNING WITH GLUCERNA AT 55 ML/HR, TOLERATING WELL; ADMINISTERED MEDICATIONS PRESCRIBED; PATIENT'S NEEDS ATTENDED; MONITORED PATIENT ACCORDINGLY; SAFETY PRECAUTIONS IN PLACE AT ALL TIMES. BED IN LOWEST LOCKED POSITION, HOB ELEVATED, SIDE RAILS UP X2, AND CALL LIGHT AND TABLE WITHIN REACH; WILL ENDORSE TO PM NURSE FOR CALLI.
--- NOTE | 2022-08-13 19:15 | NUR ---
RN NOTE RECEIVED PT FOR CONTINUITY OF CARE. PATIENT NON VERBAL IN NO S/SX OF ACUTE DISTRESS AT THIS TIME; CURRENTLY ON 3L OF 02 VIA NC; WITH 02 SAT >95% AT THIS TIME.WITH IV ACCESS L HAND #20 PATENT, INTACT AND FLUSHING WELL. WITH IV FLUID RUNNING ORDERED. WILL ENSURE SAFETY MEASURES WITHIN THE SHIFT. PATIENT BED ALARM IS ON. HEAD OF BED ELEVATED. BED IS LOCKED, IN LOWEST POSITION AND SIDE RAILS UP. CALL LIGHT WITHIN REACH OF THE PATIENT. WILL CONTINUE TO MONITOR AND REASSESS FOR ANY CHANGES AND WILL CARRY OUT ANY ONGOING AND ACTIVE MD ORDER.
[2022-08-13 20:00] VITALS: BP 133/58
[2022-08-13 20:13] LABS: BAND % (MANUAL) 3 % (0.0-5.0); EOSINOPHILS % (MANUAL) 1 % (0-4); LYMPHOCYTES % (MANUAL) 10 % (16-48); MONOCYTES % (MANUAL) 2 % (0-11.0); NEUTROPHILS % (MANUAL) 84 (42-76)
[2022-08-13 21:13] LABS: ABG BASE EXCESS -7.7 mmol/L; ABG OXYGEN SATURATION 98.2 % (92.0-98.5); ABG PCO2 22.4 mmHg (35.0-45.0); ABG PH 7.443 (7.350-7.450); ABG PO2 118.3 mmHg (75.0-100.0); AaDO2 83.7 mmHg; COHb 0.1 % (0.5-1.5); MetHb 0.3 % (0.0-1.5); O2Hb 97.8 % (94.0-97.0); SITE, ABG Left Radial; VENT MODE, BG 3LPM NC
--- NOTE | 2022-08-13 21:17 | NUR ---
RT NOTE ABG DONE. RESULTS GIVEN TO MARKETING BUSINESS ANALYST AND TRAVIS BELL.
--- NOTE | 2022-08-13 21:25 | NUR ---
[facility] result relayed to MANSOOR Jimenez with no order made.
[2022-08-13] MEDS: ATORVASTATIN 10 MG TABLET GT SCH (21:36)
[2022-08-13] MEDS: LATANOPROST EYE DROP 0.005% 2.5 ML BOTTLE EACHEYE SCH (21:55)
[2022-08-14] VITALS: BP 128/54
[2022-08-14 04:00] VITALS: BP 130/60
--- NOTE | 2022-08-14 06:27 | NUR ---
RN CLOSING NOTE PATIENT REMAINS IN ROOM IN NO SIGNS OF RESPIRATORY DISTRESS, PATIENT NOW ON 2L OF 02 VIA NC; TOLERATING WELL SATURATING @ >95% SP02. EPISODES OF SB; BUT GENERALLY SR ON MONITOR. SAFETY MEASURES IMPLEMENTED, BED IN LOWEST POSITION, LOCKED, SIDE RAILS UP, CALL LIGHT WITHIN REACH. ALL NEEDS AND ORDERS ADDRESSED DURING THE SHIFT. IV ACCESS MAINTAINED INTACT, SECURED AND FLUSHING WELL. ALL DUE MEDS GIVEN ORDERED & SCHEDULED ; PATIENT TOLERATED WELL. TUBE FEEDING RUNNING PER ORDER. PATIENT KEPT CLEAN AND COMFORTABLE WITHIN THE SHIFT. PATIENT ENDORSED TO INCOMING SHIFT RN WITH STABLE VITAL SIGN AND FOR CONTINUITY OF CARE.
--- NOTE | 2022-08-14 07:05 | NUR ---
RN OPENING NOTE PATIENT RESTING IN BED, NON-VERBAL; STABLE ON O2 LPM VIA NASAL CANNULA, PER MERCHANDISE APPRAISER REPORT PATIENT WAS SUPPOSED TO BE DC TO SNF YESTERDAY BUT PATIENT KEPT IN DUE TO [place], DR SLAUGHTER NOTIFIED WITH REQUEST TO START PATIENT ON TELE MONITOR. IV ACCESS ON RAC G20 RUNNING 10 ML/HR WITH TKO, WITH G TUBE RUNNING WITH GLUCERNA AT 55 ML/HR, TOLERATING WELL; SAFETY PRECAUTIONS WILL BE IN PLACE AT ALL TIMES. BED IN LOWEST LOCKED POSITION, HOB ELEVATED, SIDE RAILS UP X2, AND CALL LIGHT AND TABLE WITHIN REACH; WILL KEEP MONITORING THE PATIENT THROUGHOUT THE SHIFT.
[2022-08-14] MEDS: BLOOD SUGAR DIAGNOSTIC 1 EACH STRIP IN SCH ×4 (07:52→22:11)
[2022-08-14] MEDS: LEVETIRACETAM SOL (5 ML) 100 MG/ML UDC GT SCH ×2 (08:15→21:04)
[2022-08-14] MEDS: FERROUS SULFATE UDC 300 MG/5 ML UDC GT SCH (08:15)
[2022-08-14] MEDS: PANTOPRAZOLE 40 MG/PACK PACK GT SCH (08:15)
[2022-08-14] MEDS: METOPROLOL TARTRATE 25 MG TABLET PO SCH ×4 (08:16→21:04)
[2022-08-14] MEDS: POLYETHYLENE GLYCOL 3350 17 GM POWD.PACK GT SCH (08:16)
[2022-08-14] MEDS: ZINC OXIDE 56.7 GM TUBE TP SCH (08:17)
[2022-08-14] MEDS: PROSOURCE / PROSTAT (PYXIS) 30 ML UDC GT SCH ×3 (08:17→17:00)
[2022-08-14] MEDS: APIXABAN 2.5 MG TABLET GT SCH (08:19)
[2022-08-14] MEDS: INSULIN REGULAR, HUMAN 100 UNIT/ML 3 ML VIAL SQ PRN ×4 (08:32→22:15)
[2022-08-14 12:00] VITALS: BP 141/66
[2022-08-14] MEDS: CEFEPIME 1 GM in IV D5W 50 ML IV SCH (12:00)
[2022-08-14] MEDS: DIGOXIN 0.25 MG TABLET PO SCH (12:09)
[2022-08-14] MEDS: GLUCERNA 1.2 1,000 ML BOTTLE NG PRN (15:03)
--- NOTE | 2022-08-14 16:45 | NUR ---
DR. SLAUGHTER ORDERED FAITH CATHETER, AND DC THE IV FLUID.
--- NOTE | 2022-08-14 17:10 | NUR ---
AFTER FAITH CATHETER INSERTION HEMATURIA, DR SLAUGHTER ORDERED BLADDER IRRIGATION, SO WE CHANGED THE FAITH CATH TO [address] CATH FOR IRRIGATION.
--- NOTE | 2022-08-14 18:00 | NUR ---
PER DR. SUKHJINDER GUERRERO DC IV FLUID, CONTINUE THE BLADDER IRRIGATION DUE TO HEMATURIA.
--- NOTE | 2022-08-14 18:18 | NUR ---
CHARGE NURSE PRIYANKA CONFIRMED THE CODE STATUS WITH PATIENT'S DAUGHTERS THE CONFIRMED THE DO NOT INTUBATION, BUT YES TO COMPRESSION CPR.
[2022-08-14] MEDS: ACETAMINOPHEN 325 MG TABLET PO PRN (18:26)
--- NOTE | 2022-08-14 18:54 | NUR ---
DR. SUKHJINDER GUERRERO R/T GROSS HEMATURIA.
--- NOTE | 2022-08-14 19:00 | NUR ---
RN CLOSING NOTE PATIENT RESTING IN BED, NON-VERBAL; STABLE ON O2 LPM VIA NASAL CANNULA, IV ACCESS ON RAC G20 IV FLUID DC PER DR. SLAUGHTER, WITH G TUBE RUNNING WITH GLUCERNA AT 55 ML/HR, TOLERATING WELL; SAFETY PRECAUTIONS IN PLACE AT ALL TIMES. BED IN LOWEST LOCKED POSITION, HOB ELEVATED, SIDE RAILS UP X2, AND CALL LIGHT AND TABLE WITHIN REACH; WILL INDORSE THE PATIENT TO THE PATIENT ACCOUNT REPRESENTATIVE NURSE FOR CALLI.
--- NOTE | 2022-08-14 19:32 | NUR ---
noc rn note received patient with eyes closed, easy to arouse. no s/s of apparent distress on 2lpm of O2 via nc. not exhibiting pain via flacc. Patient on bladder irrigation, [address] draining via gravity with pink urine output. no fluids running at this time. Reading A-fib with 68 bpm. G-tube running Glucerna @55mls/hr. Patient noted to have both arms swollen. safety in place-- bed in locked position. side rails up X4, bed alarm in place. will continue to monitor patient and cont. with plan of care.
[2022-08-14 20:00] VITALS: BP 126/58
[2022-08-14] MEDS: ATORVASTATIN 10 MG TABLET GT SCH (21:04)
[2022-08-14] MEDS: LATANOPROST EYE DROP 0.005% 2.5 ML BOTTLE EACHEYE SCH (22:14)
[2022-08-15] VITALS: BP 130/64
--- NOTE | 2022-08-15 03:17 | NUR ---
noc rn note patient noted to be having hiccups. given Thorazine 25mg as ordered PRN for hiccup
[2022-08-15 04:00] VITALS: BP 135/66
[2022-08-15] MEDS: BLOOD SUGAR DIAGNOSTIC 1 EACH STRIP IN SCH ×4 (06:48→21:55)
[2022-08-15] MEDS: INSULIN REGULAR, HUMAN 100 UNIT/ML 3 ML VIAL SQ PRN ×4 (06:50→21:54)
--- NOTE | 2022-08-15 06:54 | NUR ---
noc rn closing note patient comfortably sleeping. no s/s of apparent distress on 2lpm of o2 via nc. not exhibiting pain via flacc. reading a-fib controlled 79bpm this am. on continues bladder irrigation still hematuria noted with output of 1000ml. GTube glucerna running @55mls/hr. left hand #20g on saline lock. all needs attended. all scheduled medications administered. safety kept in place the whole shift. will endorse to morning shift rn for continuity of care.
--- NOTE | 2022-08-15 07:05 | NUR ---
RN OPENING NOTE PATIENT RESTING IN BED, NON-VERBAL; STABLE ON O2 2LPM VIA NASAL CANNULA, IV ACCESS LEFT HAND 20G, G TUBE RUNNING GLUCERNA AT 55 ML/HR, TOLERATING WELL; PT ON CONTINUES BLADDER IRRIGATION, HEMATURIA SEEN IN FAITH CATH BAG. SAFETY PRECAUTIONS IN PLACE AT ALL TIMES. BED IN LOWEST LOCKED POSITION, HOB ELEVATED, SIDE RAILS UP X2, AND CALL LIGHT AND TABLE WITHIN REACH; WILL
--- NOTE | 2022-08-15 07:45 | NUR ---
PATIENT BREATHING HEAVILY, DR ROTHMAN AT BEDSIDE, ORDERED ABG.
[2022-08-15] MEDS: FERROUS SULFATE UDC 300 MG/5 ML UDC GT SCH (08:09)
[2022-08-15] MEDS: PROSOURCE / PROSTAT (PYXIS) 30 ML UDC GT SCH ×3 (08:10→17:01)
[2022-08-15] MEDS: METOPROLOL TARTRATE 25 MG TABLET PO SCH ×4 (08:10→21:07)
[2022-08-15] MEDS: LEVETIRACETAM SOL (5 ML) 100 MG/ML UDC GT SCH ×2 (08:10→21:06)
[2022-08-15] MEDS: PANTOPRAZOLE 40 MG/PACK PACK GT SCH (08:10)
[2022-08-15] MEDS: ZINC OXIDE 56.7 GM TUBE TP SCH (08:11)
[2022-08-15] MEDS: POLYETHYLENE GLYCOL 3350 17 GM POWD.PACK GT SCH (08:11)
[2022-08-15 08:31] LABS: ABG BASE EXCESS -4.9 mmol/L; ABG OXYGEN SATURATION 97.5 % (92.0-98.5); ABG PCO2 27.8 mmHg (35.0-45.0); ABG PH 7.438 (7.350-7.450); ABG PO2 106.1 mmHg (75.0-100.0); AaDO2 60.7 mmHg; COHb 0.1 % (0.5-1.5); MetHb 0.3 % (0.0-1.5); O2Hb 97.1 % (94.0-97.0); SITE, ABG Left Radial; VENT MODE, BG 2L NC
--- NOTE | 2022-08-15 08:37 | NUR ---
ABG BLOOD READY, DR ROTHMAN NOTIFIED OF THE RESULT, NO NEW ORDER.
[2022-08-15 12:00] VITALS: BP 132/51
[2022-08-15] MEDS: DIGOXIN 0.25 MG TABLET PO SCH (12:36)
[2022-08-15 16:00] VITALS: BP 122/49
--- NOTE | 2022-08-15 16:00 | NUR ---
LABS ARE READY, CHLORIDE 126; NA 155. DR SLAUGHTER NOTIFIED, NO NEW ORDER YET.
[2022-08-15 16:08] LABS: BASOPHILS % (AUTO) 0.2 % (0.0-2.0); EOSINOPHILS % (AUTO) 1.3 % (0.0-6.0); HEMATOCRIT 30 % (33-45); HEMOGLOBIN 8.4 g/dL (11.5-14.8); LYMPHOCYTES # (AUTO) 1.8 K/uL (0.8-4.8); LYMPHOCYTES % (AUTO) 9.1 % (20.0-44.0); MEAN CORPUSCULAR HGB CONC 28 g/dl (31.0-36.0); MEAN CORPUSCULAR VOLUME 82 fL (82-100); NEUTROPHILS # (AUTO) 16.5 K/uL (1.8-8.9); NEUTROPHILS % (AUTO) 84.4 % (43.0-81.0); PLATELET COUNT (AUTO) 220 K/uL (150-450); RED BLOOD CELL COUNT(AUTO) 3.66 MIL/uL (4.0-5.2); WHITE BLOOD COUNT (AUTO) 19.6 K/uL (4.3-11.0)
[2022-08-15 16:21] LABS: CALCIUM, SERUM 8.7 mg/dL (8.5-10.1); MAGNESIUM 2.4 mg/dL (1.8-2.4); PHOSPHORUS 3.7 mg/dL (2.5-4.9); POTASSIUM 4.6 mmol/L (3.5-5.1)
[2022-08-15] MEDS: GLUCERNA 1.2 1,000 ML BOTTLE NG PRN (17:55)
[2022-08-15 18:13] LABS: BAND % (MANUAL) 2 % (0.0-5.0); EOSINOPHILS % (MANUAL) 1 % (0-4); LYMPHOCYTES % (MANUAL) 10 % (16-48); MONOCYTES % (MANUAL) 4 % (0-11.0); NEUTROPHILS % (MANUAL) 83 (42-76)
--- NOTE | 2022-08-15 18:44 | NUR ---
RN CLOSING NOTE PATIENT ASLEEP, STABLE ON O2 LPM VIA NASAL CANNULA, IV ACCESS ON RAC 20G, FLUSHES WELL. G TUBE RUNNING GLUCERNA AT 55 ML/HR, TOLERATING WELL; NS FAITH CATHETER IRRIGATION RUNNING AT 250ML/HR. SAFETY PRECAUTIONS IN PLACE AT ALL TIMES. BED IN LOWEST LOCKED POSITION, HOB ELEVATED, SIDE RAILS UP X2, AND CALL LIGHT AND TABLE WITHIN REACH; WILL INDORSE PATIENT TO THE GLASS PRODUCTS INSPECTOR NURSE FOR CALLI.
[2022-08-15 20:12] VITALS: BP 122/66
[2022-08-15] MEDS: ATORVASTATIN 10 MG TABLET GT SCH (21:07)
[2022-08-15] MEDS: ACETAMINOPHEN 325 MG TABLET PO PRN (21:07)
[2022-08-15] MEDS: LATANOPROST EYE DROP 0.005% 2.5 ML BOTTLE EACHEYE SCH (21:14)
--- NOTE | 2022-08-15 21:55 | NUR ---
ACCUCHECK Bld glucose 184mg/dl. Given insulin per sliding parameters, co-signed by TRAVIS Dailey.
[2022-08-16 00:20] VITALS: BP 128/62
[2022-08-16] MEDS ORDERED: Z GUARD REMEDY 4 OZ OINT TP PRN (01:00)
[2022-08-16 04:00] VITALS: BP 142/74
--- NOTE | 2022-08-16 05:44 | NUR ---
END OF SHIFT REPORT Patient in bed obtunded, eyes opens. Oxygen sat high 100s in 2L NC. Afib controlled in the Tele monitor HR 100. Tolerating Tube feeding, low gastric residual 5ml. On GLucerna 1.2 at 55ml/hr with 200ml Free water flushes q6H. Valdovinos cath to gravity, Urine clearing to pink, some clots. CBI, intake 2500ml, output 4500 during the night. Incontinent care done, patient had BM. Turned and repositioned q2h, off load heels at all time. Coccyx wound, consult for wound care. Skin photo placed in the chart. Plan for hold off anticoagulation medication until urine remained clear for 2-3 days per Urology. Will endorse to oncoming RN.
[2022-08-16] MEDS: BLOOD SUGAR DIAGNOSTIC 1 EACH STRIP IN SCH ×4 (06:28→21:36)
[2022-08-16] MEDS: INSULIN REGULAR, HUMAN 100 UNIT/ML 3 ML VIAL SQ PRN ×4 (06:29→21:44)
--- NOTE | 2022-08-16 07:05 | NUR ---
RN OPENING NOTE PATIENT RESTING IN BED, NON-VERBAl, OPEN EYES, STABLE ON O2 2LPM VIA NASAL CANNULA, IV ACCESS LEFT HAND 20G, G TUBE RUNNING GLUCERNA AT 55 ML/HR, TOLERATING WELL; PT CONTINUE TO BE ON BLADDER IRRIGATION, HEMATURIA SEEN IN FAITH CATH BAG. SAFETY PRECAUTIONS IN PLACE AT ALL TIMES. BED IN LOWEST LOCKED POSITION, HOB ELEVATED, SIDE RAILS UP X2, AND CALL LIGHT AND TABLE WITHIN REACH; WILL CONTINUE TO MONITOR.
--- NOTE | 2022-08-16 08:09 | NUR ---
WOUND CARE CONSULT/FOLLOW UP: PT PRESENTS WITH SACRAL DEEP TISSUE INJURY IN EVOLUTION WITH SURROUNDING SCARRING. DEEP TISSUE INJURY WAS NOTED TO BE PRESENT ON ADMISSION. BILATERAL HEELS CONTINUE TO PRESENT WITH INTACT DEEP TISSUE INJURIES, PRESENT ON ADMISSION. RECOMMENDATIONS MADE FOR SKIN PROTECTION. WOUND TREATMENT ORDERES UPDATED AND DISCUSSED WITH NURSING STAFF. MD IN AGREEMENT WITH PLAN OF CARE. PT IS ON [place] ISOFLEX LOW AIRLOSS BED.
[2022-08-16] MEDS: LEVETIRACETAM SOL (5 ML) 100 MG/ML UDC GT SCH ×2 (08:26→21:21)
[2022-08-16] MEDS: METOPROLOL TARTRATE 25 MG TABLET PO SCH ×4 (08:27→21:22)
[2022-08-16] MEDS: FERROUS SULFATE UDC 300 MG/5 ML UDC GT SCH (08:27)
[2022-08-16] MEDS: PROSOURCE / PROSTAT (PYXIS) 30 ML UDC GT SCH ×3 (08:28→17:12)
[2022-08-16] MEDS: ZINC OXIDE 56.7 GM TUBE TP SCH (08:28)
[2022-08-16] MEDS: PANTOPRAZOLE 40 MG/PACK PACK GT SCH (08:28)
[2022-08-16] MEDS: POLYETHYLENE GLYCOL 3350 17 GM POWD.PACK GT SCH (08:28)
[2022-08-16 12:00] VITALS: BP 128/61
[2022-08-16 12:08] LABS: BASOPHILS % (AUTO) 0.2 % (0.0-2.0); LYMPHOCYTES # (AUTO) 1.3 K/uL (0.8-4.8); NEUTROPHILS % (AUTO) 85.5 % (43.0-81.0)
[2022-08-16 12:17] LABS: EOSINOPHILS % (AUTO) 2.5 % (0.0-6.0); HEMATOCRIT 28 % (33-45); LYMPHOCYTES % (AUTO) 8.1 % (20.0-44.0); MEAN CORPUSCULAR HGB CONC 29 g/dl (31.0-36.0); MEAN CORPUSCULAR VOLUME 81 fL (82-100); MONOCYTES # (AUTO) 0.6 K/uL (0.1-1.30); MONOCYTES % (AUTO) 3.7 % (2.0-12.0); NEUTROPHILS # (AUTO) 13.7 K/uL (1.8-8.9); PLATELET COUNT (AUTO) 198 K/uL (150-450); RED BLOOD CELL COUNT(AUTO) 3.43 MIL/uL (4.0-5.2)
[2022-08-16 12:19] LABS: CALCIUM, SERUM 8.7 mg/dL (8.5-10.1); CREATININE 0.8 mg/dL (0.6-1.3); MAGNESIUM 2.2 mg/dL (1.8-2.4); PHOSPHORUS 3.6 mg/dL (2.5-4.9); POTASSIUM 4.2 mmol/L (3.5-5.1)
[2022-08-16] MEDS: DIGOXIN 0.25 MG TABLET PO SCH (12:22)
[2022-08-16] MEDS: MEROPENEM 500 MG in IV NS 0.9% 50 ML IV SCH (13:09)
[2022-08-16] MEDS: VANCOMYCIN 0.75 GM in IV D5W 250 ML IV SCH (13:59)
--- NOTE | 2022-08-16 18:59 | NUR ---
RN CLOSING NOTE PATIENT ASLEEP, FAMILYAT BEDSIDE. PT STABLE ON O2 LPM VIA NASAL CANNULA, IV ACCESS ON RAC 20G, FLUSHES WELL. G TUBE RUNNING GLUCERNA AT 55 ML/HR, TOLERATING WELL; NS FAITH CATHETER IRRIGATION RUNNING AT 250ML/HR. SAFETY PRECAUTIONS IN PLACE AT ALL TIMES. BED IN LOWEST LOCKED POSITION, HOB ELEVATED, SIDE RAILS UP X2, AND CALL LIGHT AND TABLE WITHIN REACH; WILL INDORSE PATIENT TO THE FILAMENT SHAPER NURSE FOR CALLI.
--- NOTE | 2022-08-16 19:45 | NUR ---
RN Opening Notes Received pt in bed, with eyes closed. Obtunded. On NC 2LPM and tolerating well. No SOB noted. No s/sx of respiratory distress noted. Tele monitor detects Afib. IV access in LAC #22G. IV is intact, patent, and flushing well. Valdovinos catheter in place with continuous irrigation running and clear, yellow urine draining with pink tinge. Safety precautions in place: bed in lowest, locked position, siderails upX2, and brakes on. Table and call light within reach. All needs met at this time.
[2022-08-16 20:00] VITALS: BP 132/54
[2022-08-16] MEDS: ATORVASTATIN 10 MG TABLET GT SCH (21:22)
[2022-08-16] MEDS: LATANOPROST EYE DROP 0.005% 2.5 ML BOTTLE EACHEYE SCH (21:36)
[2022-08-17] VITALS: BP 126/56
[2022-08-17] MEDS: MEROPENEM 500 MG in IV NS 0.9% 50 ML IV SCH ×2 (00:11→12:18)
[2022-08-17] MEDS: GLUCERNA 1.2 1,000 ML BOTTLE NG PRN (00:12)
[2022-08-17 04:00] VITALS: BP 135/47
[2022-08-17 06:37] LABS: BASOPHILS # (AUTO) 0.1 K/uL (0.0-0.2); BASOPHILS % (AUTO) 0.4 % (0.0-2.0); EOSINOPHILS % (AUTO) 3.7 % (0.0-6.0); HEMATOCRIT 28 % (33-45); HEMOGLOBIN 7.8 g/dL (11.5-14.8); LYMPHOCYTES # (AUTO) 1.5 K/uL (0.8-4.8); LYMPHOCYTES % (AUTO) 10.3 % (20.0-44.0); MEAN CORPUSCULAR HGB CONC 28 g/dl (31.0-36.0); MEAN CORPUSCULAR VOLUME 83 fL (82-100); MONOCYTES # (AUTO) 0.6 K/uL (0.1-1.30); NEUTROPHILS # (AUTO) 11.7 K/uL (1.8-8.9); NEUTROPHILS % (AUTO) 81.6 % (43.0-81.0); PLATELET COUNT (AUTO) 177 K/uL (150-450); RED BLOOD CELL COUNT(AUTO) 3.33 MIL/uL (4.0-5.2); WHITE BLOOD COUNT (AUTO) 14.4 K/uL (4.3-11.0)
--- NOTE | 2022-08-17 06:43 | NUR ---
RN Closing Notes Pt in bed, with eyes closed. Obtunded. On NC 2LPM and tolerating well. No SOB noted. No s/sx of respiratory distress noted. Tele monitor detects Afib. IV access in LAC #22G. IV is intact, patent, and flushing well. Valdovinos catheter in place with continuous irrigation running and clear, yellow urine draining with pink tinge. All orders carried out. All needs met. Pt kept clean and dry. Safety precautions in place: bed in lowest, locked position, siderails upX2, and brakes on. Table and call light within reach. Will endorse to oncoming shift for CALLI.
[2022-08-17 07:05] LABS: CALCIUM, SERUM 8.5 mg/dL (8.5-10.1); CREATININE 0.6 mg/dL (0.6-1.3); PHOSPHORUS 3.4 mg/dL (2.5-4.9); POTASSIUM 4.6 mmol/L (3.5-5.1)
--- NOTE | 2022-08-17 07:15 | NUR ---
PROCESS CONTROLS TECHNICIAN OPENING NOTES Received pt awake in bed. Non verbal and unable to follow command. No signs of pain or discomfort at this time. Pt is on 2L NC and tolerating it well. IV aces on LAC 18G SL patent and intact. GT is patent and intact running GTF as prescribed. HOB elevated to 30-45 degrees. Siderails up at all times x4. Call light within reach. Will continue to monitor.
[2022-08-17] MEDS: BLOOD SUGAR DIAGNOSTIC 1 EACH STRIP IN SCH ×4 (07:46→21:51)
[2022-08-17] MEDS: LEVETIRACETAM SOL (5 ML) 100 MG/ML UDC GT SCH ×2 (08:35→21:26)
[2022-08-17] MEDS: FERROUS SULFATE UDC 300 MG/5 ML UDC GT SCH (08:35)
[2022-08-17] MEDS: POLYETHYLENE GLYCOL 3350 17 GM POWD.PACK GT SCH (08:36)
[2022-08-17] MEDS: PANTOPRAZOLE 40 MG/PACK PACK GT SCH (08:36)
[2022-08-17] MEDS: METOPROLOL TARTRATE 25 MG TABLET PO SCH ×4 (08:36→21:00)
[2022-08-17] MEDS: INSULIN REGULAR, HUMAN 100 UNIT/ML 3 ML VIAL SQ PRN ×4 (08:37→21:54)
[2022-08-17] MEDS: ZINC OXIDE 56.7 GM TUBE TP SCH (08:46)
[2022-08-17] MEDS: PROSOURCE / PROSTAT (PYXIS) 30 ML UDC GT SCH ×3 (09:31→16:40)
--- NOTE | 2022-08-17 11:14 | NUR ---
DYE WEIGHER HELPER NOTES Seen and evaluated by Anthony Diggs NP with new orders to d/c Valdovinos irrigation and STAT ABG.
[2022-08-17 11:44] LABS: ABG BASE EXCESS -1.6 mmol/L; ABG OXYGEN SATURATION 96.1 % (92.0-98.5); ABG PCO2 31.2 mmHg (35.0-45.0); ABG PH 7.461 (7.350-7.450); ABG PO2 84.9 mmHg (75.0-100.0); AaDO2 77.9 mmHg; COHb 0.4 % (0.5-1.5); MetHb 0.3 % (0.0-1.5); O2Hb 95.4 % (94.0-97.0); SITE, ABG Right Brachial; VENT MODE, BG NASAL CANNULA
[2022-08-17 12:00] VITALS: BP 125/67
[2022-08-17] MEDS: DIGOXIN 0.25 MG TABLET PO SCH (12:17)
[2022-08-17] MEDS: VANCOMYCIN 0.75 GM in IV D5W 250 ML IV SCH (13:47)
--- NOTE | 2022-08-17 16:49 | NUR ---
DICTAPHONE MECHANIC NOTE RECEIVED PT FROM ODELL, PATIENT IN BED, ON 2L NASAL CANULA, SATURATION 97%, PT IS OBTUNDED, ON TELE MONITOR HR 76, PT HAS A G-TUBE WITH GLUCERNA 55ML PER HOUR, KEEP HOB ELEVATED, LAC IN PLACE AND FLUSHED WELL, BED IS LOCKED AND IN LOWEST POSITION, SAFETY MEASURE IMPLEMENTED WILL CONTINUE TO MONITOR
--- NOTE | 2022-08-17 18:22 | NUR ---
WELDING MACHINE OPERATOR/TENDER NOTE NOTED RESPIRATION IS MORE LABORED, CALLED DR MARIA INES SEAMAN NOTIFIED CXR RESULTS FROM YESTERDAY, O2 SAT 100%, ORDERED LASIX 40MG IV TIMES ONE, WILL F/U
[2022-08-17] MEDS: FUROSEMIDE 40 MG/4 ML VIAL IV STA ×2 (18:37→18:59)
--- NOTE | 2022-08-17 18:59 | NUR ---
FOUNDATION DRILL OPERATOR NOTE NOTED BP 93/[address] MARIA INES SEAMAN WITH ORDER HOLD LASIX AT THIS TIME, ALSO ORDERED ABG ,AWARE THAT STILL LABORED RESPIRATION, WILL F\U
--- NOTE | 2022-08-17 19:05 | NUR ---
RN OPENING NOTES PATIENT RECEIVED IN BED, OBTUNDED. PT ON NASAL CANULA @ 4LPM SATING AT 92%. NO SOB NOTED, NO S/S DISTRESS, AFEBRILE, NO FACIAL GRIMACING NOTED. NOTED WITH LAC PERIPHERAL LINE, FLUSHED WITH NS, NO S/S OF INFILTRATION NOTED. NOTED WITH GTUBE, VERIFIED PLACEMENT BY AUSCULTATION, NO RESIDUAL NOTED UPON ASPIRATION RUNNING WITH GLUCERNA 1.2 AT 55 ML/HR, HEAD OF BED KEPT ELEVATED. FAITH CATHETER PATENT INTACT DRAINING WITH YELLOWISH URINE OUTPUT VIA GRAVITY. ALL SAFETY PRECAUTION PROVIDED. BED IN LOWEST POSITION, LOCKED. CALL LIGHT WITHIN REACH, SIDE RAILS UP X3. WILL CONTINUE TO MONITOR.
--- NOTE | 2022-08-17 19:24 | NUR ---
RN COMPLEX CARE NOTE AWAITING FOR RT TO DO ABG , ENDORSED TO TO NEXT SHIFT RN TO F\U
[2022-08-17 19:40] LABS: ABG BASE EXCESS -4.1 mmol/L; ABG PCO2 29.8 mmHg (35.0-45.0); ABG PH 7.434 (7.350-7.450); ABG PO2 121.2 mmHg (75.0-100.0); COHb 0.3 % (0.5-1.5); MetHb 0.3 % (0.0-1.5); O2Hb 97.7 % (94.0-97.0); SITE, ABG Left Radial; VENT MODE, BG nasal cannula
[2022-08-17 20:00] VITALS: BP 139/59
--- NOTE | 2022-08-17 20:00 | NUR ---
RN NOTES NOTIFIED CHANA DIEHL, REGARDING PATIENT LATEST ABG, PER GLADYS, GIVE THE LASIX 40MG IV THAT WAS HELD EARLIER DUE TO PATIENT LOW BP, AND ALSO HELD THE METOPROLOL DUE AT 2100, NOTED AND CARRIED OUT. LATEST BP- 131/39.
[2022-08-17] MEDS ORDERED: FUROSEMIDE 40 MG/4 ML VIAL IV ONE (20:45)
--- NOTE | 2022-08-17 20:45 | NUR ---
RN NOTES NOTIFIED CHANA DIEHL, REGARDING PATIENT HEART RATE UP AND DOWN TO 50'S AND 60'S AND SOMETIMES UP TO 70'S, IF SHE STILL WANT TO GIVE LASIX 40 MG IV, PER GLADYS GONZALEZ TO GIVE THE LASIX. WILL CONTINUE TO MONITOR.
--- NOTE | 2022-08-17 21:00 | NUR ---
RN NOTES CHANA DIEHL AT BEDSIDE WITH NEW ORDER CHEST XRAY IN AM NOTED AND CARRIED OUT.
[2022-08-17] MEDS: ATORVASTATIN 10 MG TABLET GT SCH (21:26)
[2022-08-17] MEDS: LATANOPROST EYE DROP 0.005% 2.5 ML BOTTLE EACHEYE SCH (21:31)
[2022-08-18] VITALS: BP 148/59
[2022-08-18] MEDS: MEROPENEM 500 MG in IV NS 0.9% 50 ML IV SCH ×2 (01:08→12:24)
[2022-08-18 04:00] VITALS: BP 155/65
[2022-08-18 07:14] LABS: CALCIUM, SERUM 8.5 mg/dL (8.5-10.1); CREATININE 0.6 mg/dL (0.6-1.3); PHOSPHORUS 3.6 mg/dL (2.5-4.9); POTASSIUM 4.5 mmol/L (3.5-5.1)
--- NOTE | 2022-08-18 07:15 | NUR ---
RN OPENING NOTES PATIENT RECEIVED IN BED, OBTUNDED. PT ON NASAL CANULA @ 4LPM SATING AT 97%. NO SOB NOTED, NO S/S DISTRESS, AFEBRILE, NO FACIAL GRIMACING NOTED. NOTED WITH LAC PERIPHERAL LINE 18G, FLUSHED WITH NS, NO S/S OF INFILTRATION NOTED. NOTED WITH GTUBE, VERIFIED PLACEMENT BY AUSCULTATION, NO RESIDUAL NOTED UPON ASPIRATION RUNNING WITH GLUCERNA 1.2 AT 55 ML/HR, HEAD OF BED KEPT ELEVATED. FAITH CATHETER PATENT INTACT DRAINING WITH YELLOWISH URINE OUTPUT VIA GRAVITY. ALL SAFETY PRECAUTION PROVIDED. BED IN LOWEST POSITION, LOCKED. CALL LIGHT WITHIN REACH, SIDE
[2022-08-18] MEDS: GLUCERNA 1.2 1,000 ML BOTTLE NG PRN (07:17)
[2022-08-18] MEDS: BLOOD SUGAR DIAGNOSTIC 1 EACH STRIP IN SCH ×4 (07:43→21:32)
[2022-08-18] MEDS: INSULIN REGULAR, HUMAN 100 UNIT/ML 3 ML VIAL SQ PRN ×4 (07:45→21:37)
[2022-08-18] MEDS: LEVETIRACETAM SOL (5 ML) 100 MG/ML UDC GT SCH ×2 (08:20→21:06)
[2022-08-18] MEDS: PANTOPRAZOLE 40 MG/PACK PACK GT SCH (08:21)
[2022-08-18] MEDS: FERROUS SULFATE UDC 300 MG/5 ML UDC GT SCH (08:21)
[2022-08-18] MEDS: POLYETHYLENE GLYCOL 3350 17 GM POWD.PACK GT SCH (08:21)
[2022-08-18] MEDS: PROSOURCE / PROSTAT (PYXIS) 30 ML UDC GT SCH ×3 (08:23→17:40)
[2022-08-18] MEDS: ZINC OXIDE 56.7 GM TUBE TP SCH (08:23)
[2022-08-18] MEDS: METOPROLOL TARTRATE 25 MG TABLET PO SCH ×4 (08:24→21:07)
[2022-08-18 08:30] LABS: BASOPHILS % (AUTO) 0.3 % (0.0-2.0); HEMATOCRIT 29 % (33-45); HEMOGLOBIN 8.4 g/dL (11.5-14.8); LYMPHOCYTES # (AUTO) 1.9 K/uL (0.8-4.8); LYMPHOCYTES % (AUTO) 14.2 % (20.0-44.0); MEAN CORPUSCULAR HGB CONC 29 g/dl (31.0-36.0); MEAN CORPUSCULAR VOLUME 83 fL (82-100); MONOCYTES # (AUTO) 0.6 K/uL (0.1-1.30); MONOCYTES % (AUTO) 4.3 % (2.0-12.0); NEUTROPHILS # (AUTO) 10.6 K/uL (1.8-8.9); NEUTROPHILS % (AUTO) 78.2 % (43.0-81.0); PLATELET COUNT (AUTO) 204 K/uL (150-450); RED BLOOD CELL COUNT(AUTO) 3.52 MIL/uL (4.0-5.2); WHITE BLOOD COUNT (AUTO) 13.6 K/uL (4.3-11.0)
[2022-08-18 08:56] VITALS: BP 131/60
[2022-08-18 12:00] VITALS: BP 111/57
[2022-08-18] MEDS: DIGOXIN 0.25 MG TABLET PO SCH (12:24)
--- NOTE | 2022-08-18 13:00 | NUR ---
BRIM MOLDER NOTES: HELD METOPROLOL FOR B/P 138/70, HR 58
[2022-08-18] MEDS: VANCOMYCIN 0.75 GM in IV D5W 250 ML IV SCH (13:40)
[2022-08-18 16:00] VITALS: BP 128/57
[2022-08-18] MEDS: APIXABAN 2.5 MG TABLET PO SCH (17:39)
--- NOTE | 2022-08-18 18:50 | NUR ---
ELECTRIC BATH ATTENDANT CLOSING NOTE. PT IN BED. OBTUNDED. HOB KEPT ELEVATED FOR ASPIRATION PRECAUTION. NO S/S OF PAIN OR DISCOMFORT. ON 4LPM NC. NO SOB NO DYSPNEA. ON GT MEDICATIONS. GIVEN ORDERED. VERIFIED PLACEMENT. ABD SOFT NON DISTENDED. POSITIVE BOWEL MOVEMENT SOUNDS. KEPT CLEAN AND DRY AFTER BM X3. GOOD PERINEAL CARE RENDERED. TURNED AND REPOSITIONED Q2H FOR COMFORT AND GOOD CIRCULATION. LAC 18G INTACT. NO INFILTRATION NOTED IV ATB GIVEN ORDERED. NO ASE NOTED. WILL ENDORSE TO NEXT SHIFT FOR CONTINUITY OF CARE
--- NOTE | 2022-08-18 19:05 | NUR ---
RN OPENING NOTES RECEIVED PATIENT IN BED, ASLEEP, O2 VIA NC AT 4L, O2 SAT 98%, BREATHING EVEN AND UNLABORED, O2 SAT 98%. ON TELE MONITOR SHOWING AFIB, HR 63. IV ACCESS ON LAC #18G S/L, INTACT AND FLUSHES WELL. GTF RUNNING GLUCERNA 1.2 AT 55 ML/HR, TOLERATING WELL, NO RESIDUAL NOTED. FAITH CATHETER IN PLACE DRAINING DENITA YELLOW URINE. SAFETY MEASURES IN PLACE: BED LOCKED AND IN LOWEST POSITION, HOB ELEVATED, CALL LIGHT WITHIN REACH, SIDE RAILS UP X3.
[2022-08-18 20:00] VITALS: BP 132/55
[2022-08-18] MEDS: ATORVASTATIN 10 MG TABLET GT SCH (21:06)
[2022-08-18] MEDS: LATANOPROST EYE DROP 0.005% 2.5 ML BOTTLE EACHEYE SCH (21:06)
[2022-08-19] VITALS: BP 149/49
[2022-08-19] MEDS: MEROPENEM 500 MG in IV NS 0.9% 50 ML IV SCH ×2 (00:12→12:56)
[2022-08-19 04:00] VITALS: BP 138/50
--- NOTE | 2022-08-19 06:16 | NUR ---
RN CLOSING NOTES PATIENT IN BED, ASLEEP, OBTUNDED, O2 VIA NC AT 3L, O2 SAT 99%, BREATHING EVEN AND UNLABORED. ON TELE MONITOR SHOWING AFIB, HR 67. IV ACCESS ON LAC #18G S/L, INTACT AND FLUSHES WELL. GTF RUNNING GLUCERNA 1.2 AT 55 ML/HR, TOLERATING WELL, NO RESIDUAL NOTED. FAITH CATHETER IN PLACE DRAINING [place] YELLOW URINE WITH 500 ML UO. ALL DUE MEDS WERE GIVEN AND NEEDS ATTENDED. VSS. SAFETY MEASURES MAINTAINED: BED LOCKED AND IN LOWEST POSITION, HOB ELEVATED, CALL LIGHT WITHIN REACH, SIDE RAILS UP X3. WILL ENDORSE TO ONCOMING NURSE FOR CALLI.
[2022-08-19 06:27] LABS: BASOPHILS # (AUTO) 0.1 K/uL (0.0-0.2); BASOPHILS % (AUTO) 0.5 % (0.0-2.0); EOSINOPHILS % (AUTO) 3.7 % (0.0-6.0); HEMATOCRIT 26 % (33-45); HEMOGLOBIN 7.7 g/dL (11.5-14.8); LYMPHOCYTES # (AUTO) 1.8 K/uL (0.8-4.8); MEAN CORPUSCULAR HGB CONC 29 g/dl (31.0-36.0); MEAN CORPUSCULAR VOLUME 81 fL (82-100); MONOCYTES # (AUTO) 0.5 K/uL (0.1-1.30); NEUTROPHILS # (AUTO) 9.4 K/uL (1.8-8.9); NEUTROPHILS % (AUTO) 76.8 % (43.0-81.0); PLATELET COUNT (AUTO) 187 K/uL (150-450); RED BLOOD CELL COUNT(AUTO) 3.26 MIL/uL (4.0-5.2); WHITE BLOOD COUNT (AUTO) 12.3 K/uL (4.3-11.0)
[2022-08-19 07:02] LABS: CALCIUM, SERUM 8.5 mg/dL (8.5-10.1); CARBON DIOXIDE 26 mmol/L (21-32); CHLORIDE 117 mmol/L (98-107); CREATININE 0.5 mg/dL (0.6-1.3); GLUCOSE 231 mg/dL (74-106); MAGNESIUM 1.9 mg/dL (1.8-2.4); PHOSPHORUS 3.4 mg/dL (2.5-4.9); POTASSIUM 4.5 mmol/L (3.5-5.1); SODIUM SERUM 149 mmol/L (136-145); UREA NITROGEN, BLOOD 43 mg/dL (7-18)
--- NOTE | 2022-08-19 07:10 | NUR ---
RN NOTE RECEIVED PATIENT IN BED RESTING OBTUNDED CLOSE EYES ON 3L OXYGEN VIA NASAL CANNULA,O2:98% IV SITE IS ON LEFT FOREARM INTACT PATENT ON G-TUBE FEEDING GLUCERNA 55CC/HR CHECKED PLACEMENT IN PLACE NO RESIDUAL NOTED,FAITH CATH IN PLACE URINE DRAINING YELLOW BY GRAVITY SAFETY MEASURE IMPLEMENT BED IN LOW POSITION AND LOCKED HEAD OF THE BED ELEVATED CONTINUE TO MONITOR.
[2022-08-19] MEDS: BLOOD SUGAR DIAGNOSTIC 1 EACH STRIP IN SCH ×4 (07:17→21:32)
[2022-08-19 08:00] VITALS: BP 147/64
[2022-08-19] MEDS: FERROUS SULFATE UDC 300 MG/5 ML UDC GT SCH (08:24)
[2022-08-19] MEDS: PANTOPRAZOLE 40 MG/PACK PACK GT SCH (08:24)
[2022-08-19] MEDS: LEVETIRACETAM SOL (5 ML) 100 MG/ML UDC GT SCH ×2 (08:24→20:40)
[2022-08-19] MEDS: METOPROLOL TARTRATE 25 MG TABLET PO SCH ×4 (08:25→20:45)
[2022-08-19] MEDS: APIXABAN 2.5 MG TABLET PO SCH ×2 (08:27→16:51)
[2022-08-19] MEDS: PROSOURCE / PROSTAT (PYXIS) 30 ML UDC GT SCH ×3 (08:29→16:52)
[2022-08-19] MEDS: ZINC OXIDE 56.7 GM TUBE TP SCH (08:29)
[2022-08-19] MEDS: INSULIN REGULAR, HUMAN 100 UNIT/ML 3 ML VIAL SQ PRN ×3 (08:30→21:29)
[2022-08-19] MEDS: POLYETHYLENE GLYCOL 3350 17 GM POWD.PACK GT SCH (08:47)
[2022-08-19 12:00] VITALS: BP 132/58
[2022-08-19] MEDS: DIGOXIN 0.25 MG TABLET PO SCH (12:56)
[2022-08-19] MEDS: GLUCERNA 1.2 1,000 ML BOTTLE NG PRN (14:18)
[2022-08-19] MEDS: VANCOMYCIN 0.75 GM in IV D5W 250 ML IV SCH (14:49)
[2022-08-19 16:00] VITALS: BP 141/51
--- NOTE | 2022-08-19 18:50 | NUR ---
RN NOTE PATIENT REMAINS OBTUNDED EYES CLOSED,ON 2LOXYGEN VIA NASAL CANNULA O2:97% NO SOB NOT ACUTE DISTRESS NOTED ALL DUE MEDS GIVEN MD ORDERED,KEPT CLEAN AND DRY ALL THE TIME,TURNED AND REPOSITIONED EVERY 2 HOURS,WOUND TREATMENT DONE,KEPT HEAD OF THE BED ELEVATED ALL THE TIME,FAMILY BEDSIDE,WILL ENDORSE NEXT COMING SHIFT FOR CONTINUATION OF CARE.
[2022-08-19 20:00] VITALS: BP 124/50
[2022-08-19] MEDS: ATORVASTATIN 10 MG TABLET GT SCH (21:01)
[2022-08-19] MEDS: LATANOPROST EYE DROP 0.005% 2.5 ML BOTTLE EACHEYE SCH (21:01)
--- NOTE | 2022-08-19 21:33 | NUR ---
telegraph service clerk notes Blood sugar for 10pm is 262mg/dl 6 units of regular insulin given per sliding scale
[2022-08-20] VITALS: BP 153/69
[2022-08-20] MEDS: MEROPENEM 500 MG in IV NS 0.9% 50 ML IV SCH ×2 (00:33→13:52)
[2022-08-20] MEDS: VANCOMYCIN HCL 0.75 GM in IV D5W 250 ML IV SCH ×2 (01:13→14:56)
[2022-08-20 04:00] VITALS: BP 133/55
--- NOTE | 2022-08-20 06:43 | NUR ---
RESIDENT CARE AIDE CLOSING NOTES PTS REMAIN IN BED NON VERBAL ON 3L 02 VIA NC, SPO2 95%. NO RESPIRATORY DISTRESS NOTED. REMAIN ON GT FEEDING GLUCERNA AT 55CC/HR WELL TOLERATED BY PTS. WILL ENDORSE TO RN DAY SHIFT FOR CONTINUITY OF CARE.
[2022-08-20 06:55] LABS: BASOPHILS # (AUTO) 0.1 K/uL (0.0-0.2); BASOPHILS % (AUTO) 0.5 % (0.0-2.0); EOSINOPHILS % (AUTO) 3.5 % (0.0-6.0); HEMATOCRIT 26 % (33-45); HEMOGLOBIN 7.4 g/dL (11.5-14.8); LYMPHOCYTES # (AUTO) 1.8 K/uL (0.8-4.8); LYMPHOCYTES % (AUTO) 16.7 % (20.0-44.0); MEAN CORPUSCULAR HGB CONC 28 g/dl (31.0-36.0); MEAN CORPUSCULAR VOLUME 81 fL (82-100); MONOCYTES # (AUTO) 0.6 K/uL (0.1-1.30); NEUTROPHILS # (AUTO) 8.2 K/uL (1.8-8.9); NEUTROPHILS % (AUTO) 74.3 % (43.0-81.0); PLATELET COUNT (AUTO) 198 K/uL (150-450); RED BLOOD CELL COUNT(AUTO) 3.23 MIL/uL (4.0-5.2); WHITE BLOOD COUNT (AUTO) 11.1 K/uL (4.3-11.0)
--- NOTE | 2022-08-20 07:10 | NUR ---
RN OPENING NOTE RECEIVED PATIENT IN BED RESTING OBTUNDED, OXYGEN VIA NASAL CANNULA AT 2L, SAT 98%, NO SOB NO DISTRESS NOTED, IV ACCESS LEFT UPPER ARM g18 INTACT AND PATENT. G-TUBE IN PLACE, NO RESIDUE, GLUCERNA 55CC/HR RUNNING. FAITH CATH DRAINING YELLOW URINE BY GRAVITY. SAFETY MEASURE IMPLEMENTED, BED IN LOW POSITION AND LOCKED HEAD OF THE BED ELEVATED WILL CONTINUE TO MONITOR.
[2022-08-20 07:19] LABS: CALCIUM, SERUM 8.2 mg/dL (8.5-10.1); CARBON DIOXIDE 27 mmol/L (21-32); CHLORIDE 113 mmol/L (98-107); CREATININE 0.6 mg/dL (0.6-1.3); GLUCOSE 255 mg/dL (74-106); MAGNESIUM 1.9 mg/dL (1.8-2.4); PHOSPHORUS 3.1 mg/dL (2.5-4.9); POTASSIUM 4.7 mmol/L (3.5-5.1); SODIUM SERUM 146 mmol/L (136-145); UREA NITROGEN, BLOOD 50 mg/dL (7-18)
[2022-08-20 08:00] VITALS: BP 129/50
[2022-08-20] MEDS: BLOOD SUGAR DIAGNOSTIC 1 EACH STRIP IN SCH ×4 (08:04→22:10)
[2022-08-20] MEDS: INSULIN REGULAR, HUMAN 100 UNIT/ML 3 ML VIAL SQ PRN ×4 (08:06→22:10)
[2022-08-20] MEDS: PROSOURCE / PROSTAT (PYXIS) 30 ML UDC GT SCH ×3 (08:35→16:46)
[2022-08-20] MEDS: GLUCERNA 1.2 1,000 ML BOTTLE NG PRN (08:36)
[2022-08-20] MEDS: PANTOPRAZOLE 40 MG/PACK PACK GT SCH (09:22)
[2022-08-20] MEDS: POLYETHYLENE GLYCOL 3350 17 GM POWD.PACK GT SCH (09:22)
[2022-08-20] MEDS: LEVETIRACETAM SOL (5 ML) 100 MG/ML UDC GT SCH ×2 (09:22→20:41)
[2022-08-20] MEDS: FERROUS SULFATE UDC 300 MG/5 ML UDC GT SCH (09:22)
[2022-08-20] MEDS: METOPROLOL TARTRATE 25 MG TABLET PO SCH ×4 (09:23→21:00)
[2022-08-20] MEDS: APIXABAN 2.5 MG TABLET PO SCH ×2 (09:25→17:04)
[2022-08-20] MEDS: ZINC OXIDE 56.7 GM TUBE TP SCH (09:26)
[2022-08-20 12:00] VITALS: BP 130/60
[2022-08-20] MEDS: DIGOXIN 0.25 MG TABLET PO SCH (13:53)
[2022-08-20 16:00] VITALS: BP 126/56
--- NOTE | 2022-08-20 19:37 | NUR ---
RN CLOSING NOTE PATIENT IN BED RESTING OBTUNDED, OXYGEN VIA NASAL CANNULA AT 2L, SAT 98%, NO SOB NO DISTRESS NOTED, IV ACCESS LEFT UPPER ARM g18 INTACT AND PATENT. G-TUBE IN PLACE, NO RESIDUE, GLUCERNA 55CC/HR RUNNING. FAITH CATH DRAINING YELLOW URINE BY GRAVITY. ALL NEEDS ATTENDED, MEDICATION ADMINISTERED. SAFETY MEASURE IMPLEMENTED, BED IN LOW POSITION AND LOCKED HEAD OF THE BED ELEVATED WILL ENDORSE TO THE PRODUCT PROMOTER SALES PERSON FOR CALLI.
[2022-08-20 20:00] VITALS: BP 131/63
--- NOTE | 2022-08-20 20:00 | NUR ---
CYTOGENETICIST OPENING NOTE RECEIVED PATIENT IN BED RESTING OBTUNDED EYES OPEN V/S STABLE AFEBRILE ON 3L OXYGEN VIA NASAL CANNULA,O2:98% NO SOB NO DISTRESS NOTED . IV SITE IS ON LEFT UPPER ARM g18 INTACT AND PATENT , ALL DUE MEDS GIVEN ORDERED NO ASE NOTED, ON G-TUBE FEEDING GLUCERNA 55CC/HR CHECKED PLACEMENT IN PLACE NO RESIDUAL NOTED,FAITH CATH IN PLACE URINE DRAINING YELLOW BY GRAVITY SAFETY MEASURE IMPLEMENT BED IN LOW POSITION AND LOCKED HEAD OF THE BED ELEVATED WILL CONTINUE TO MONITOR.
[2022-08-20] MEDS: ATORVASTATIN 10 MG TABLET GT SCH (21:04)
[2022-08-20] MEDS: LATANOPROST EYE DROP 0.005% 2.5 ML BOTTLE EACHEYE SCH (21:05)
--- NOTE | 2022-08-20 22:11 | NUR ---
telephone installer notes BLOOD SUGAR AT 10 PM IS 231MG/DL 4 UNITS OF REGULAR INSULIN GIVEN PER SLIDING SCALE PTS ON gt feeding.
[2022-08-21] VITALS: BP 134/64
[2022-08-21] MEDS: MEROPENEM 500 MG in IV NS 0.9% 50 ML IV SCH ×2 (01:16→12:12)
[2022-08-21] MEDS: VANCOMYCIN HCL 0.75 GM in IV D5W 250 ML IV SCH ×2 (02:05→13:03)
[2022-08-21 04:00] VITALS: BP 136/58
--- NOTE | 2022-08-21 06:14 | NUR ---
INJECTION MOLDING ENGINEER CLOSING NOTES PTS REMAIN IN BED NON VERBAL ON 3L 02 VIA NC, SPO2 95%. NO RESPIRATORY DISTRESS NOTED. REMAIN ON GT FEEDING GLUCERNA AT 55CC/HR WELL TOLERATED BY PTS. WILL ENDORSE TO RN DAY SHIFT FOR CONTINUITY OF CARE.
[2022-08-21 06:19] LABS: CALCIUM, SERUM 8.1 mg/dL (8.5-10.1); CARBON DIOXIDE 28 mmol/L (21-32); CHLORIDE 109 mmol/L (98-107); CREATININE 0.7 mg/dL (0.6-1.3); GLUCOSE 270 mg/dL (74-106); POTASSIUM 4.7 mmol/L (3.5-5.1); SODIUM SERUM 141 mmol/L (136-145); UREA NITROGEN, BLOOD 40 mg/dL (7-18)
--- NOTE | 2022-08-21 07:05 | NUR ---
RN OPENING NOTE RECEIVED PATIENT IN BED RESTING OBTUNDED, OPENING EYES BUT NOT RESPONSIVE TO STIMULI. OXYGEN VIA NASAL CANNULA AT 2L, SAT 98%, NO SOB NO DISTRESS NOTED, IV ACCESS LEFT UPPER ARM g18 INTACT AND PATENT. G-TUBE IN PLACE, NO RESIDUE, GLUCERNA 55CC/HR RUNNING. FAITH CATH DRAINING YELLOW URINE BY GRAVITY. SAFETY MEASURE IMPLEMENTED, BED IN LOW POSITION AND LOCKED HEAD OF THE BED ELEVATED WILL CONTINUE TO MONITOR.
[2022-08-21] MEDS: BLOOD SUGAR DIAGNOSTIC 1 EACH STRIP IN SCH ×2 (07:46→12:02)
[2022-08-21] MEDS: INSULIN REGULAR, HUMAN 100 UNIT/ML 3 ML VIAL SQ PRN ×2 (07:48→12:09)
[2022-08-21 08:00] VITALS: BP 141/67
[2022-08-21] MEDS: PROSOURCE / PROSTAT (PYXIS) 30 ML UDC GT SCH ×2 (08:32→12:02)
[2022-08-21] MEDS: ZINC OXIDE 56.7 GM TUBE TP SCH (08:33)
[2022-08-21] MEDS: LEVETIRACETAM SOL (5 ML) 100 MG/ML UDC GT SCH (09:04)
[2022-08-21] MEDS: FERROUS SULFATE UDC 300 MG/5 ML UDC GT SCH (09:04)
[2022-08-21] MEDS: POLYETHYLENE GLYCOL 3350 17 GM POWD.PACK GT SCH (09:05)
[2022-08-21] MEDS: APIXABAN 2.5 MG TABLET PO SCH (09:05)
[2022-08-21] MEDS: METOPROLOL TARTRATE 25 MG TABLET PO SCH ×2 (09:05→12:28)
[2022-08-21] MEDS: PANTOPRAZOLE 40 MG/PACK PACK GT SCH (09:06)
[2022-08-21 12:00] VITALS: BP 134/68
[2022-08-21] MEDS: DIGOXIN 0.25 MG TABLET PO SCH (12:27)
[2022-08-21 12:28] VITALS: BP 134/68
--- NOTE | 2022-08-21 14:45 | NUR ---
PATIENT D/C, TAKING BY PARAMEDICS, PT WILL GET HOSPICE CARE AT HOME.
== END 2022-08-21 13:59 | disposition hospice, home (50) | DRG 871 ==
LOC: ER 19:37 → TELE1 08-06 01:00 → MEDSG1 08-10 18:50 → TELE1 08-13 21:08
PROVIDERS: ADMIT Internal Medicine; ATTEND Nurse Practitioner Acute Care
DX: A41.9 Sepsis, unspecified organism (principal); E43 Unspecified severe protein-calorie malnutrition; G93.41 Metabolic encephalopathy; N17.0 Acute kidney failure with tubular necrosis; I21.4 Non-ST elevation (NSTEMI) myocardial infarction; N39.0 Urinary tract infection, site not specified; E87.20 Acidosis, unspecified; E87.1 Hypo-osmolality and hyponatremia; E87.0 Hyperosmolality and hypernatremia; I48.20 Chronic atrial fibrillation, unspecified; I69.351 Hemiplegia and hemiparesis following cerebral infarction affecting right dominant side; N13.6 Pyonephrosis; J81.1 Chronic pulmonary edema; R65.20 Severe sepsis without septic shock; F01.50 Vascular dementia, unspecified severity, without behavioral disturbance, psychotic disturbance, mood disturbance, and anxiety; D50.9 Iron deficiency anemia, unspecified; I10 Essential (primary) hypertension; E11.9 Type 2 diabetes mellitus without complications; K21.9 Gastro-esophageal reflux disease without esophagitis; E78.5 Hyperlipidemia, unspecified; D63.8 Anemia in other chronic diseases classified elsewhere; E86.9 Volume depletion, unspecified; E83.41 Hypermagnesemia; I69.391 Dysphagia following cerebral infarction; R13.10 Dysphagia, unspecified; E88.09 Other disorders of plasma-protein metabolism, not elsewhere classified; G40.909 Epilepsy, unspecified, not intractable, without status epilepticus; I11.0 Hypertensive heart disease with heart failure; I50.9 Heart failure, unspecified; I70.0 Atherosclerosis of aorta; J32.3 Chronic sphenoidal sinusitis; R09.02 Hypoxemia; Z93.1 Gastrostomy status; Z79.01 Long term (current) use of anticoagulants
CPT/HCPCS: 36415; 36600; 70450-TC; 71045-TC; 76770-TC; 80048-TC; 80053-TC; 80076-TC; 80202-TC; 81001; 82272-TC; 82803-TC; 82962-TC; 83605-TC; 83735-TC; 84100-TC; 84300-TC; 84484-TC; 85025-TC; 85730-TC; 87040-TC; 87081-TC; 87086-TC; A4217; A4223; A6403; C9803; G0378; J0360; J0692; J0696; J1160; J1650; J1815; J1940; J1953; J2185; J3370; J3490; J7030; J7040; J7050; J7060; Q0161